=== PATIENT | male | born 1940 | race Caucasian/White ===

== ENCOUNTER 2020-03-21 15:19 | Outpatient (REF) | payer MEDICARE, OTHER, SELFPAY ==
[2020-03-22 07:26] LABS: Estimated Average Glucose 194 mg/dL; Hemoglobin A1c % 8.4 %
== END 2020-03-21 15:20 | disposition home or self-care (01) ==
LOC: HO.MANLR 15:19
PROVIDERS: PCP Internal Medicine; Visit Provider Internal Medicine
DX: E11.65 Type 2 diabetes mellitus with hyperglycemia (principal)
CPT/HCPCS: 83036

== ENCOUNTER 2020-07-09 08:54 | Outpatient (REF) | payer MEDICARE, OTHER, SELFPAY ==
[2020-07-09 11:31] LABS: Hemoglobin 13.7 g/dl (14.0-18.0); Mean Corpuscular HGB Conc 33.4 g/dl (31.0-36.0); Mean Corpuscular Volume 86.7 fL (80-98); Platelet Count 192 X10*3/uL (160-400); Red Blood Count 4.73 X10*6/uL (4.60-5.80); Red Cell Distribution Width 14.7 % (11.0-16.0); White Blood Count 8.8 X10*3/uL (4.8-10.8)
[2020-07-09 11:46] LABS: Estimated Average Glucose 157 mg/dL; Hemoglobin A1c % 7.1 %
[2020-07-09 11:51] LABS: Alanine Aminotransferase 18 U/L (0-40); Albumin Level 4.1 g/dL (3.5-5.0); Alkaline Phosphatase 85 U/L (39-117); Anion Gap 14 (12-20); Aspartate Amino Transferase 16 U/L (5-37); Blood Urea Nitrogen 29 mg/dL (9-16); Calcium 9.2 mg/dL (8.4-10.2); Carbon Dioxide 25 mmol/L (22-29); Chloride 102 mmol/L (96-108); Cholesterol 108 mg/dL; Estimated Glomerular Filt Rate 50; Glucose Fasting 117 mg/dL (60-99); HDL Cholesterol 21 mg/dL; LDL Cholesterol Calculated 57 mg/dl; Potassium 5.7 mmol/L (3.3-5.1); Sodium 135 mmol/L (135-145); Total Protein 6.7 g/dL (6.5-8.0); Triglycerides 152 mg/dL
[2020-07-09 12:11] LABS: Vitamin D 25-OH Total 22.3 ng/mL (>30)
[2020-07-09 13:38] LABS: Creatinine Urine 109.03 mg/dL; Microalbum/Creatinine Ratio Ur 77.9 ug/mg cr
== END 2020-07-09 08:55 | disposition home or self-care (01) ==
LOC: HO.MANLR 08:54
PROVIDERS: PCP Internal Medicine; Visit Provider Internal Medicine
DX: E11.65 Type 2 diabetes mellitus with hyperglycemia (principal); I10 Essential (primary) hypertension; E78.1 Pure hyperglyceridemia
CPT/HCPCS: 36415; 80053; 80061; 82043; 82306; 83036; 85027

== ENCOUNTER 2020-07-28 08:19 | Outpatient (REF) | payer MEDICARE, OTHER, SELFPAY ==
[2020-07-28 12:12] LABS: Anion Gap 13 (12-20); Blood Urea Nitrogen 25 mg/dL (9-16); Calcium 8.3 mg/dL (8.4-10.2); Carbon Dioxide 27 mmol/L (22-29); Chloride 105 mmol/L (96-108); Estimated Glomerular Filt Rate 51; Glucose Fasting 129 mg/dL (60-99); Potassium 4.3 mmol/L (3.3-5.1); Sodium 141 mmol/L (135-145)
== END 2020-07-28 08:20 | disposition home or self-care (01) ==
LOC: HO.MANLDS 08:19
PROVIDERS: PCP Internal Medicine; Visit Provider Internal Medicine
DX: E78.5 Hyperlipidemia, unspecified (principal)
CPT/HCPCS: 36415; 80048

== ENCOUNTER 2020-10-21 09:29 | Outpatient (REF) | payer MEDICARE, OTHER, SELFPAY ==
[2020-10-21 13:10] LABS: Anion Gap 13 (12-20); Blood Urea Nitrogen 34 mg/dL (9-16); Calcium 9.4 mg/dL (8.4-10.2); Carbon Dioxide 28 mmol/L (22-29); Chloride 103 mmol/L (96-108); Estimated Glomerular Filt Rate 49; Glucose Random 213 mg/dL (60-115); Sodium 139 mmol/L (135-145)
== END 2020-10-21 09:30 | disposition home or self-care (01) ==
LOC: HO.MANLDS 09:29
PROVIDERS: Visit Provider Internal Medicine
DX: E87.5 Hyperkalemia (principal); E11.65 Type 2 diabetes mellitus with hyperglycemia
CPT/HCPCS: 36415; 80048

== ENCOUNTER 2021-02-25 10:16 | Outpatient (REF) | payer MEDICARE, OTHER, SELFPAY ==
[2021-02-25 13:18] LABS: Estimated Average Glucose 200 mg/dL; Hemoglobin A1c % 8.6 %
== END 2021-02-25 10:17 | disposition home or self-care (01) ==
LOC: HO.MANLDS 10:16
PROVIDERS: PCP Internal Medicine; Visit Provider Internal Medicine
DX: E11.65 Type 2 diabetes mellitus with hyperglycemia (principal)
CPT/HCPCS: 36415; 83036

== ENCOUNTER 2021-04-27 09:24 | Outpatient (REF) | payer MEDICARE, OTHER, SELFPAY ==
[2021-04-27 11:06] LABS: Estimated Average Glucose 189 mg/dL; Hemoglobin A1c % 8.2 %
== END 2021-04-27 09:25 | disposition home or self-care (01) ==
LOC: HO.MANLDS 09:24
PROVIDERS: PCP Internal Medicine; Visit Provider Internal Medicine
DX: E11.65 Type 2 diabetes mellitus with hyperglycemia (principal)
CPT/HCPCS: 36415; 83036

== ENCOUNTER 2021-06-30 14:06 | Outpatient (REF) | payer MEDICARE, OTHER, SELFPAY ==
[2021-06-30 18:00] LABS: Estimated Average Glucose 157 mg/dL; Hemoglobin A1c % 7.1 %
== END 2021-06-30 14:07 | disposition home or self-care (01) ==
LOC: HO.MANLDS 14:06
PROVIDERS: PCP Internal Medicine; Visit Provider Internal Medicine
DX: E11.65 Type 2 diabetes mellitus with hyperglycemia (principal)
CPT/HCPCS: 36415; 83036

== ENCOUNTER 2021-10-14 09:44 | Outpatient (REF) | payer MEDICARE, OTHER, SELFPAY ==
[2021-10-14 11:31] LABS: Estimated Average Glucose 148 mg/dL; Hemoglobin A1c % 6.8 %
[2021-10-14 11:36] LABS: Creatinine Urine 176.24 mg/dL; Microalbum/Creatinine Ratio Ur 62.9 ug/mg cr
[2021-10-14 11:38] LABS: Alanine Aminotransferase 23 U/L (0-40); Albumin Level 3.8 g/dL (3.5-5.0); Alkaline Phosphatase 82 U/L (39-117); Anion Gap 13 (12-20); Aspartate Amino Transferase 19 U/L (5-37); Blood Urea Nitrogen 37 mg/dL (9-16); Calcium 8.8 mg/dL (8.4-10.2); Carbon Dioxide 27 mmol/L (22-29); Chloride 106 mmol/L (96-108); Cholesterol 101 mg/dL; Estimated Glomerular Filt Rate 49; Glucose Random 87 mg/dL (60-115); HDL Cholesterol 22 mg/dL; LDL Cholesterol Calculated 53 mg/dl; Potassium 4.6 mmol/L (3.3-5.1); Sodium 141 mmol/L (135-145); Total Protein 6.5 g/dL (6.5-8.0); Triglycerides 130 mg/dL
== END 2021-10-14 09:45 | disposition home or self-care (01) ==
LOC: HO.MANLDS 09:44
PROVIDERS: Visit Provider Internal Medicine
DX: E11.65 Type 2 diabetes mellitus with hyperglycemia (principal)
CPT/HCPCS: 36415; 80053; 80061; 82043; 83036

== ENCOUNTER 2022-01-26 15:54 | Outpatient (REF) | payer MEDICARE, OTHER, SELFPAY ==
[2022-01-26 18:25] LABS: Estimated Average Glucose 151 mg/dL; Hemoglobin A1c % 6.9 %
== END 2022-01-26 15:55 | disposition home or self-care (01) ==
LOC: HO.MANLDS 15:54
PROVIDERS: Visit Provider Internal Medicine
DX: E11.65 Type 2 diabetes mellitus with hyperglycemia (principal)
CPT/HCPCS: 36415; 83036

== ENCOUNTER 2022-04-20 15:06 | Outpatient (REF) | payer MEDICARE, OTHER, SELFPAY ==
[2022-04-20 18:52] LABS: Hemoglobin 12.9 g/dl (14.0-18.0); Imm Gran Abs Auto 0.06 X10*3/uL (0.00-0.03); Imm Gran Pct Auto 0.5 % (0.0-0.4); MANUAL DIFF FLAG SCAN; Mean Corpuscular Hemoglobin 29.3 pg (27.0-33.0); Monocytes Absolute Auto 0.7 X10*3/uL (0.1-1.2); PLT CLUMP 1; SCAN SMEAR FLAG 1
[2022-04-20 18:54] LABS: Basophils Absolute Auto 0.1 X10*3/uL (0.0-0.2); Basophils Percent Auto 0.4 % (0-2); Eosinophils Absolute Auto 0.3 X10*3/uL (0.0-0.4); Eosinophils Percent Auto 2.1 % (0-4); Hematocrit 37.5 % (42.0-52.0); Lymphocytes Absolute Auto 1.3 X10*3/uL (1.2-4.9); Lymphocytes Percent Auto 10.7 % (20-40); Mean Corpuscular HGB Conc 34.4 g/dl (31.0-36.0); Mean Corpuscular Volume 85.2 fL (80.0-98.0); Monocytes Percent Auto 5.7 % (2-11); NRBC Pct Auto 0.2 /100WBC (0.0-0.2); Neutrophils Absolute Auto 9.8 x10*3/uL (2.0-8.3); Neutrophils Percent Auto 80.6 % (45-73); Red Cell Distribution Width 15.1 % (11.0-16.0)
[2022-04-20 19:12] LABS: Platelet Count 147 X10*3/uL (160-400); White Blood Count 12.2 X10*3/uL (4.8-10.8)
[2022-04-20 19:13] LABS: SLIDE REVIEW VERIFIED
[2022-04-20 19:19] LABS: Alanine Aminotransferase 20 U/L (0-40); Albumin Level 3.7 g/dL (3.5-5.0); Alkaline Phosphatase 116 U/L (39-117); Anion Gap 13 (12-20); Aspartate Amino Transferase 15 U/L (5-37); Bilirubin Total 1.1 mg/dL (0.0-1.0); Blood Urea Nitrogen 30 mg/dL (9-16); Calcium 8.7 mg/dL (8.4-10.2); Carbon Dioxide 27 mmol/L (22-29); Chloride 102 mmol/L (96-108); Cholesterol 95 mg/dL; Estimated Glomerular Filt Rate 47; Glucose Random 243 mg/dL (60-115); HDL Cholesterol 19 mg/dL; LDL Cholesterol Calculated 27 mg/dl; Potassium 4.3 mmol/L (3.3-5.1); Sodium 138 mmol/L (135-145); Total Protein 6.4 g/dL (6.5-8.0); Triglycerides 247 mg/dL
[2022-04-20 19:20] LABS: Creatinine Urine 47.98 mg/dL; Microalbum/Creatinine Ratio Ur 81.2 ug/mg cr
[2022-04-20 19:20] LABS: Estimated Average Glucose 177 mg/dL; Hemoglobin A1c % 7.8 %
== END 2022-04-20 15:07 | disposition home or self-care (01) ==
LOC: HO.MANLDS 15:06
PROVIDERS: Visit Provider Internal Medicine
DX: E11.65 Type 2 diabetes mellitus with hyperglycemia (principal)
CPT/HCPCS: 36415; 80053; 80061; 82043; 83036; 85025

== ENCOUNTER 2022-08-09 10:49 | Outpatient (REF) | payer MEDICARE, OTHER, SELFPAY ==
[2022-08-09 13:23] LABS: Estimated Average Glucose 186 mg/dL; Hemoglobin A1c % 8.1 %
== END 2022-08-09 10:50 | disposition home or self-care (01) ==
LOC: HO.MANLDS 10:49
PROVIDERS: Visit Provider Internal Medicine
DX: E11.65 Type 2 diabetes mellitus with hyperglycemia (principal)
CPT/HCPCS: 36415; 83036

== ENCOUNTER 2022-12-07 09:51 | Outpatient (REF) | payer MEDICARE, OTHER, SELFPAY ==
[2022-12-07 13:51] LABS: Estimated Average Glucose 131 mg/dL; Hemoglobin A1c % 6.2 %
== END 2022-12-07 09:52 | disposition home or self-care (01) ==
LOC: HO.MANLDS 09:51
PROVIDERS: Visit Provider Internal Medicine
DX: E11.65 Type 2 diabetes mellitus with hyperglycemia (principal)
CPT/HCPCS: 36415; 83036

== ENCOUNTER 2023-03-07 13:22 | Outpatient (REF) | payer MEDICARE, OTHER, SELFPAY ==
[2023-03-07 18:03] LABS: Estimated Average Glucose 137 mg/dL; Hemoglobin A1c % 6.4 % (<6.0)
== END 2023-03-07 13:23 | disposition home or self-care (01) ==
LOC: HO.MANLDS 13:22
PROVIDERS: Visit Provider Internal Medicine
DX: E11.65 Type 2 diabetes mellitus with hyperglycemia (principal)
CPT/HCPCS: 36415; 83036

== ENCOUNTER 2023-06-01 10:28 | Outpatient (REF) | payer MEDICARE, OTHER, SELFPAY ==
[2023-06-01 12:59] LABS: Estimated Average Glucose 163 mg/dL; Hemoglobin A1c % 7.3 % (<6.0)
== END 2023-06-01 10:29 | disposition home or self-care (01) ==
LOC: HO.MANLDS 10:28
PROVIDERS: Visit Provider Internal Medicine
DX: E11.65 Type 2 diabetes mellitus with hyperglycemia (principal)
CPT/HCPCS: 36415; 83036

== ENCOUNTER 2023-09-05 11:53 | Outpatient (REF) | payer MEDICARE, OTHER, SELFPAY ==
[2023-09-05 13:11] LABS: MANUAL DIFF FLAG NO
[2023-09-05 13:28] LABS: Basophils Absolute Auto 0.1 X10*3/uL (0.0-0.2); Basophils Percent Auto 0.6 % (0-2); Eosinophils Absolute Auto 0.1 X10*3/uL (0.0-0.4); Eosinophils Percent Auto 1.6 % (0-4); Hematocrit 41.6 % (42.0-52.0); Hemoglobin 14.2 g/dl (14.0-18.0); Imm Gran Abs Auto 0.08 X10*3/uL (0.00-0.03); Imm Gran Pct Auto 0.9 % (0.0-0.4); Lymphocytes Absolute Auto 1.6 X10*3/uL (1.2-4.9); Lymphocytes Percent Auto 17.8 % (20-40); Mean Corpuscular HGB Conc 34.1 g/dl (31.0-36.0); Mean Corpuscular Hemoglobin 29.9 pg (27.0-33.0); Mean Corpuscular Volume 87.6 fL (80.0-98.0); Monocytes Absolute Auto 0.6 X10*3/uL (0.1-1.2); Monocytes Percent Auto 6.4 % (2-11); Neutrophils Absolute Auto 6.4 x10*3/uL (2.0-8.3); Neutrophils Percent Auto 72.7 % (45-73); Platelet Count 167 X10*3/uL (160-400); Red Blood Count 4.75 X10*6/uL (4.60-5.80); Red Cell Distribution Width 14.6 % (11.0-16.0); White Blood Count 8.7 X10*3/uL (4.8-10.8)
[2023-09-05 13:44] LABS: Estimated Average Glucose 160 mg/dL; Hemoglobin A1c % 7.2 % (<6.0)
[2023-09-05 14:08] LABS: Alanine Aminotransferase 24 U/L (0-40); Alkaline Phosphatase 90 U/L (39-117); Anion Gap 11 (12-20); Aspartate Amino Transferase 17 U/L (5-37); Bilirubin Total 1.2 mg/dL (0.0-1.0); Blood Urea Nitrogen 38 mg/dL (9-16); Calcium 9.3 mg/dL (8.4-10.2); Carbon Dioxide 30 mmol/L (22-29); Chloride 105 mmol/L (96-108); Estimated Glomerular Filt Rate 51; Glucose Random 121 mg/dL (60-115); Potassium 4.5 mmol/L (3.3-5.1); Sodium 141 mmol/L (135-145); Total Protein 7.2 g/dL (6.5-8.0)
== END 2023-09-05 11:54 | disposition home or self-care (01) ==
LOC: HO.MANLDS 11:53
PROVIDERS: Visit Provider Internal Medicine
DX: I10 Essential (primary) hypertension (principal)
CPT/HCPCS: 36415; 80053; 83036; 85025

== ENCOUNTER 2023-12-26 09:08 | Outpatient (REF) | payer MEDICARE, OTHER, SELFPAY ==
[2023-12-26 13:14] LABS: MANUAL DIFF FLAG NO
[2023-12-26 13:25] LABS: Basophils Absolute Auto 0.1 X10*3/uL (0.0-0.2); Basophils Percent Auto 0.6 % (0-2); Eosinophils Absolute Auto 0.2 X10*3/uL (0.0-0.4); Eosinophils Percent Auto 1.9 % (0-4); Hematocrit 42.6 % (42.0-52.0); Hemoglobin 14.5 g/dl (14.0-18.0); Imm Gran Abs Auto 0.07 X10*3/uL (0.00-0.03); Imm Gran Pct Auto 0.9 % (0.0-0.4); Lymphocytes Absolute Auto 1.5 X10*3/uL (1.2-4.9); Lymphocytes Percent Auto 19.8 % (20-40); Mean Corpuscular Hemoglobin 29.4 pg (27.0-33.0); Mean Corpuscular Volume 86.2 fL (80.0-98.0); Monocytes Absolute Auto 0.4 X10*3/uL (0.1-1.2); Monocytes Percent Auto 5.4 % (2-11); Neutrophils Absolute Auto 5.6 x10*3/uL (2.0-8.3); Neutrophils Percent Auto 71.4 % (45-73); Platelet Count 164 X10*3/uL (160-400); Red Blood Count 4.94 X10*6/uL (4.60-5.80); Red Cell Distribution Width 14.4 % (11.0-16.0); White Blood Count 7.8 X10*3/uL (4.8-10.8)
[2023-12-26 13:44] LABS: Estimated Average Glucose 151 mg/dL; Hemoglobin A1c % 6.9 % (<6.0)
[2023-12-26 13:49] LABS: Alanine Aminotransferase 21 U/L (0-40); Albumin Level 3.8 g/dL (3.5-5.0); Alkaline Phosphatase 92 U/L (39-117); Anion Gap 12 (12-20); Aspartate Amino Transferase 17 U/L (5-37); Blood Urea Nitrogen 24 mg/dL (9-16); Calcium 9.4 mg/dL (8.4-10.2); Carbon Dioxide 27 mmol/L (22-29); Chloride 105 mmol/L (96-108); Cholesterol 104 mg/dL (<200); Estimated Glomerular Filt Rate 49; Glucose Random 178 mg/dL (60-115); HDL Cholesterol 25 mg/dL (>40); LDL Cholesterol Calculated 50 mg/dL (<100); Potassium 4.6 mmol/L (3.3-5.1); Sodium 139 mmol/L (135-145); Triglycerides 148 mg/dL (<150)
== END 2023-12-26 09:09 | disposition home or self-care (01) ==
LOC: HO.MANLDS 09:08
PROVIDERS: Visit Provider Internal Medicine
DX: E78.1 Pure hyperglyceridemia (principal); E11.65 Type 2 diabetes mellitus with hyperglycemia; I10 Essential (primary) hypertension
CPT/HCPCS: 36415; 80053; 80061; 83036; 85025

== ENCOUNTER 2024-03-23 09:20 | Outpatient (REF) | payer MEDICARE, OTHER, SELFPAY ==
[2024-03-23 13:50] LABS: Estimated Average Glucose 160 mg/dL; Hemoglobin A1C 287.4294 umol/L; Hemoglobin A1c % 7.2 % (<6.0); Total Hemoglobin (HGBA1C) 5217.5429 umol/L
== END 2024-03-23 09:21 | disposition home or self-care (01) ==
LOC: HO.MANLDS 09:20
PROVIDERS: Visit Provider Internal Medicine
DX: E11.65 Type 2 diabetes mellitus with hyperglycemia (principal)
CPT/HCPCS: 36415; 83036

== ENCOUNTER 2024-09-14 10:07 | Outpatient (REF) | payer MEDICARE, OTHER, SELFPAY ==
--- OUTSIDE RECORDS SUMMARY | 2024-09-14 10:37 | XMS_ITS | Data Portability ---
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) [facility] MODERATE MUST MEET 2 OUT OF 3 ELEMENTS: PROBLEMS, DATA OR RISK ELEMENT 1: PROBLEMS ADDRESSED 1 OR MORE CHRONIC ILLNESS WITH EXACERBATION OR 2 OR MORE STABLE CHRONIC ILLNESSES OR 1 UNDIAGNOSED NEW PROBLEM OR 1 ACUTE ILLNESS W/SYMPTOMS OR 1 ACUTE COMPLICATED INJURY ELEMENT 2: DATA MUST MEET 1 OF 3 CATEGORIES CATEGORY 1: REVIEW OF PRIOR EXTERNAL NOTES, REVIEW OF RESULTS, ORDERING OF EACH TEST, ASSESSMENT REQUIRING INDEPENDENT HISTORIAN OR CATEGORY 2: INDEPENDENT INTERPRETATION OF TESTS BY ANOTHER PHYSICIAN OR SPECIALIST OR CATEGORY 3: DISCUSSION OF MGT OR TEST INTERPRETATION W/EXTERNAL PHYSICIAN OR SPECIALIST ELEMENT 3: RISK RISK OF COMPLICATIONS AND/OR MORBIDITY OR MORTALITY OF PATIENT MANAGEMENT PROVIDER MUST THOROUGHLY DOCUMENT EACH ELEMENT THAT IS COVERED Not available 06/06/2023 10:23:16 09/09/2023 09/09/2023 [id number] [place] [id number]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) [facility] MODERATE MUST MEET 2 OUT OF 3 ELEMENTS: PROBLEMS, DATA OR RISK ELEMENT 1: PROBLEMS ADDRESSED 1 OR MORE CHRONIC ILLNESS WITH EXACERBATION OR 2 OR MORE STABLE CHRONIC ILLNESSES OR 1 UNDIAGNOSED NEW PROBLEM OR 1 ACUTE ILLNESS W/SYMPTOMS OR 1 ACUTE COMPLICATED INJURY ELEMENT 2: DATA MUST MEET 1 OF 3 CATEGORIES CATEGORY 1: REVIEW OF PRIOR EXTERNAL NOTES, REVIEW OF RESULTS, ORDERING OF EACH TEST, ASSESSMENT REQUIRING INDEPENDENT HISTORIAN OR CATEGORY 2: INDEPENDENT INTERPRETATION OF TESTS BY ANOTHER PHYSICIAN OR SPECIALIST OR CATEGORY 3: DISCUSSION OF MGT OR TEST INTERPRETATION W/EXTERNAL PHYSICIAN OR SPECIALIST ELEMENT 3: RISK RISK OF COMPLICATIONS AND/OR MORBIDITY OR MORTALITY OF PATIENT MANAGEMENT PROVIDER MUST THOROUGHLY DOCUMENT EACH ELEMENT THAT IS COVERED Not available 09/09/2023 15:18:56 12/27/2023 12/27/2023 Patient presente d to office today for their Medicare Annual Wellness Visit. Education was provided on healthy nutrition, including a diet rich in fruits and vegetables, minimizing simple carbohydrates, salt, and saturated fats. Encouraged regular cardiovascular exercise such as walking at least 30 minutes daily, 5 times per week. Emphasized preventive health measures and educated pt on fall prevention and community-based lifestyle interventions to help reduce health risks and promote healthy living. 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) [facility] MODERATE MUST MEET 2 OUT OF 3 ELEMENTS: PROBLEMS, DATA OR RISK ELEMENT 1: PROBLEMS ADDRESSED 1 OR MORE CHRONIC ILLNESS WITH EXACERBATION OR 2 OR MORE STABLE CHRONIC ILLNESSES OR 1 UNDIAGNOSED NEW PROBLEM OR 1 ACUTE ILLNESS W/SYMPTOMS OR 1 ACUTE COMPLICATED INJURY ELEMENT 2: DATA MUST MEET 1 OF 3 CATEGORIES CATEGORY 1: REVIEW OF PRIOR EXTERNAL NOTES, REVIEW OF RESULTS, ORDERING OF EACH TEST, ASSESSMENT REQUIRING INDEPENDENT HISTORIAN OR CATEGORY 2: INDEPENDENT INTERPRETATION OF TESTS BY ANOTHER PHYSICIAN OR SPECIALIST OR CATEGORY 3: DISCUSSION OF MGT OR TEST INTERPRETATION W/EXTERNAL PHYSICIAN OR SPECIALIST ELEMENT 3: RISK RISK OF COMPLICATIONS AND/OR MORBIDITY OR MORTALITY OF PATIENT MANAGEMENT PROVIDER MUST THOROUGHLY DOCUMENT EACH ELEMENT THAT IS COVERED Not available 03/26/2024 14:33:33 06/13/2024 06/13/2024 [id number] [place] [id number]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) [facility] MODERATE MUST MEET 2 OUT OF 3 ELEMENTS: PROBLEMS, DATA OR RISK ELEMENT 1: PROBLEMS ADDRESSED 1 OR MORE CHRONIC ILLNESS WITH EXACERBATION OR 2 OR MORE STABLE CHRONIC ILLNESSES OR 1 UNDIAGNOSED NEW PROBLEM OR 1 ACUTE ILLNESS W/SYMPTOMS OR 1 ACUTE COMPLICATED INJURY ELEMENT 2: DATA MUST MEET 1 OF 3 CATEGORIES CATEGORY 1: REVIEW OF PRIOR EXTERNAL NOTES, REVIEW OF RESULTS, ORDERING OF EACH TEST, ASSESSMENT REQUIRING INDEPENDENT HISTORIAN OR CATEGORY 2: INDEPENDENT INTERPRETATION OF TESTS BY ANOTHER PHYSICIAN OR SPECIALIST OR CATEGORY 3: DISCUSSION OF MGT OR TEST INTERPRETATION W/EXTERNAL PHYSICIAN OR SPECIALIST ELEMENT 3: RISK RISK OF COMPLICATIONS AND/OR MORBIDITY OR MORTALITY OF PATIENT MANAGEMENT PROVIDER MUST THOROUGHLY DOCUMENT EACH ELEMENT THAT IS COVERED Not available 06/13/2024 14:27:21 Plan of Treatment Reminders Order Date Submit Date Provider Last Modified By Organization Details Last Modified Time Details Appointments FOLLOW UP 15 2024 02:00P M DR ARGUELLO Not available Not available Not available Lab lipid panel, serum 2023 024 [facility], [address] [place] [address], [id number], 12/27/2023 11:17:34 CMP, serum or plasma 2023 024 [facility], [address] [place] [address], [id number], 12/27/2023 11:17:34 HbA1c (hemoglo bin A1c), blood 2023 024 [facility], [address] [place] [address], [id number], 12/27/2023 11:17:34 lipid panel, serum 2023 024 [facility], [address] [place] [address], [id number], 06/06/2023 10:31:15 CBC w/ auto diff 2023 024 [facility], [address] [place] [address], [id number], 09/06/2023 11:22:14 CBC w/ auto diff 2023 024 [facility], [address] [place] [address], [id number], 12/27/2023 11:17:35 CBC w/ auto diff 2023 024 [facility], [address] [place] [address], [id number], 12/27/2023 14:33:35 HbA1c (hemoglo bin A1c), blood 2023 024 [facility], [address] [place] [address], [id number], 06/06/2023 10:31:14 CMP, serum or plasma 2023 024 [facility], [address] [place] [address], [place], [id number], 06/06/2023 10:31:14 Referral None recorded . Procedures None recorded . Surgeries None recorded . Imaging None recorded . Medication Orders None recorded . Patient TargetsNo targets recorded. Patient Instructions Encounter Date Encounter Id Patient Instructions Last Modified By Organization Details Last Modified Time 12/27/2023 [id number] advance care planning: care instructions Not available 12/27/2023 14:44:54 Discussed and explained advance directives such as standard forms to the {{patient* caregi michael patient and caregiver}}. Face to face discussion lasted for a duration of __5_ minutes. Not available 12/27/2023 14:44:28 06/13/2024 [id number] sleep apnea: car e instructions Not available 06/13/2024 14:32:34 Reason for Referral None Reported. Results Created Date Observation Date Name Description Value Unit Range Abnormal Flag Note LastModifiedBy Organization Detail LastModifiedTime Result Notes None recorded. 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 5334179 Active 2021 Raymond Arguello DO [address] [place] [address], [phone], [facility] 2 15:39:22 Neuropath y due to diabetes mellitus 027248808 Active 2022 Raymond Arguello DO [address] [place] [address], [phone], [facility] 3 11:06:27 COVID-19 271249109 Active 2023 DARRELL OLIVARES [address] [place] [address], [phone], [facility] 4 13:53:59 Type 2 diabetes mellitus 88559013 Active 2017 Not Available [facility] 14:19:32 Hypertrig lyceridem ia 099051809 Active 2017 Not Available [facility] 14:19:32 Obstructi ve sleep apnea syndrome 44121063 Active 2017 Not Available [facility] 14:19:32 Low back pain 482841312 Active 2017 strain Not Available [facility] 14:19:32 Essential hypertens ion 67467757 Active 2017 Not Available [facility] 14:19:32 Prostatit is 9482298 Active 2017 Not Available [facility] 14:19:32 Recurrent hematuria 351480091 Active 2017 Not Available [facility] 14:19:32 Obesity 019093344 Active 2017 Not Available [facility] 14:19:32 Problem Notes None recorded. Medical Equipment None Reported. Allergies No known drug allergies Medications Name Sig Start Date Stop Date Status Note LastModified by Organization Details LastModified Time Prescript ion - Prior Authoriza tion Request 11/13 completed Cyclobebryce zaprine Not Available Not Available Not Available furosemid e 40 mg tablet TAKE 1 TABLET BY MOUTH EVERY DAY NEEDED 2023 active Not Available Not Available Not Avai lable atorvasta tin 40 mg tablet TAKE 1 TABLET BY MOUTH EVERY DAY 2024 active Not Available Not Available Not Avai lable glipizide ER 10 mg tablet, extended release 24 hr TAKE 1 TABLET BY MOUTH ONCE DAILY 07/26 completed Not Available Not Available Not Available Lantus U-100 Insulin 100 unit/mL subcutane ous solution 06/12 completed Not Available Not Available Not Available spironola ctone 25 mg tablet TAKE 1 TABLET BY MOUTH EVERY DAY 07/16 completed Not Available Not Available Not Available ketorolac 0.5 % eye drops INSTILL 1 DROP IN THE LEFT EYE THREE TIMES A DAY FOR 3 WEEKS FOLLOWIN G SURGERY 02/03 completed Not Available Not Available Not Available metformin 1,000 mg tablet TAKE 1 TABLET BY MOUTH EVERY DAY 02/03 completed Not Available Not Available Not Available lisinopri l 40 mg tablet TAKE 1 TABLET BY MOUTH EVERY DAY 2024 active Not Available Not Available Not Avai lable finasteri de 5 mg tablet TAKE 1 TABLET BY MOUTH DAILY active Not Available Not Available No t Available cyclobenz aprine 5 mg tablet TAKE 1 TABLET BY MOUTH THREE TIMES DAILY FOR 15 DAYS 11/13 completed Not Available Not Available Not Available BD Ultra-Fin e Mini Pen Needle 31 gauge x 3/16 USE EVERY DAY 2021 active Not Available Not Available Not Avai lable Boostrix Tdap 2.5 Lf unit-8 mcg-5 Lf/0.5 mL intramusc ular syringe 06/12 completed Not Available Not Available Not Available Aspir-81 Take one daily. active Not Available Not Available No t Available BD Ultra-Fin e Short Pen Needle 31 gauge x 5/16 USE TO INJECT INSULIN EVERY DAY 2024 active Not Available Not Available Not Avai lable Januvia 100 mg tablet TAKE 1 TABLET BY MOUTH EVERY DAY active Not Available Not Available No t Available FreeStyle Lite Strips test once a day E11.65 2019 active Not Available Not Available Not Avai lable Levemir FlexTouch U-100 Insulin 100 unit/mL (3 mL) subcutane ous pen Use 40 units every day. 03/28 completed Not Available Not Available Not Available Trulicity 1.5 mg/0.5 mL subcutane ous pen injector ADMINIST ER 1.5 MG UNDER THE SKIN EVERY WEEK DIRECTED 12/10 completed Not Available Not Available Not Available Toujeo SoloStar U-300 Insulin 300 unit/mL (1.5 mL) subcutane ous pen 11/28 completed Not Available Not Available Not Available Basaglar KwikPen U-100 Insulin 100 unit/mL (3 mL) subcutane ous ADMINIST ER 50 UNITS UNDER THE SKIN EVERY DAY 2024 active Not Available Not Available Not Avai lable Toujeo Max U-300 SoloStar 300 unit/mL (3 mL) subcutane ous insulin pen 03/28 completed Not Available Not Available Not Available magnesium 400 mg (as magnesium oxide) tablet Take 1 tablet every other day by oral route. active Not Available Not Available No t Available BD Adelina 2nd Gen Pen Needle 32 gauge x USE EVERY DAY active Not Available Not Available No t Available Fluzone High-Dose Quad (PF) 240 mcg/0.7 mL IM syringe ADM 0.7ML IM UTD 03/04 completed Not Available Not Available Not Available Trulicity 3 mg/0.5 mL subcutane ous pen injector ADMINIST ER 3 MG UNDER THE SKIN EVERY WEEK 12/12 completed Not Available Not Available Not Available BinaxNOW COVID-19 Ag Self Test kit TEST DIRECTED TODAY 04/26 completed Not Available Not Available Not Available Paxlovid 300 mg (150 mg x 2)-100 mg tablets in a dose pack Take 1 tablet twice a day by oral route for 5 days. 06/06 completed Not Available Not Available Not Available Paxlovid 150 mg-100 mg tablets in a dose pack (Moderate Renal Dose) TK 1 NIRMATRE LVIR T AND 1 RITONAVI R T TOGETHER PO BID FOR 5 DAYS 06/06 completed Not Available Not Available Not Available Mounjaro 2.5 mg/0.5 mL subcutane ous pen injector ADMINIST ER 2.5 MG UNDER THE SKIN 1 TIME A WEEK 2024 active Not Available Not Available Not Avai lable Vitals Date Recorded Body height Body mass index (BMI) Body weight Heart rate Oxygen saturation Oxygen saturation in Arterial blood by Pulse oximetry Systolic blood pressure Diastolic blood pressure Provider Name and Address Organization Details Last Updated DateTime 4 179.07 cm 35.6 kg/m2 866762. 28 g 66 /min 99 % 99 % 140 mm[Hg] 72 mm[Hg] Vilma Blanco [facility] 4 15:09:37 Date Recorded Body height Body mass index (BMI) Body weight Heart rate Oxygen saturation Oxygen saturation in Arterial blood by Pulse oximetry Systolic blood pressure Diastolic blood pressure Provider Name and Address Organization Details Last Updated DateTime 4 179.07 cm 35.9 kg/m2 396006. 46 g 72 /min 98 % 98 % 118 mm[Hg] 78 mm[Hg] Kan Covarrubias [facility] 4 14:29:36 Date Recorded Body height Body mass index (BMI) Body weight Heart rate Oxygen saturation Oxygen saturation in Arterial blood by Pulse oximetry Systolic blood pressure Diastolic blood pressure Provider Name and Address Organization Details Last Updated DateTime 4 179.07 cm 35.4 kg/m2 676390. 09 g 71 /min 98 % 98 % 132 mm[Hg] 80 mm[Hg] Vilma Farfan [facility] 4 14:15:48 Date Recorded Body height Body mass index (BMI) Body weight Heart rate Oxygen saturation Oxygen saturation in Arterial blood by Pulse oximetry Systolic blood pressure Diastolic blood pressure Provider Name and Address Organization Details Last Updated DateTime 5 179.07 cm 36.5 kg/m2 698152. 83 g 78 /min 100 % 100 % 118 mm[Hg] 70 mm[Hg] Kan Covarrubias [facility] 5 14:04:00 Social History Question Answer Notes LastModified by Organizat ion Details LastModified Time Tobacco Smoking Status [facility] 12:21:42 What Was The Date Of Your Most Recent Tobacco Screening? 06/13/2024 [email or web address] Information not available 06/13/2024 Do You Or Have You Ever Used Any Other Forms Of Tobacco Or Nicotine? No Information not available 08/11/2022 Sex: Unknown Functional Status None recorded. Mental Status None recorded. Family History Nothing Reported. Medical History No medical history recorded. Immunizations Vaccine Type Date Status Note Provider Nam e and Address Organization Details Recorded Time COVID-19, mRNA, LNP-S, PF, 30 mcg/0.3 mL dose 02/18/20 21 completed DARRELL OLIVARES [address] [place] [address], [phone], [facility] 02/18/2021 14:26:39 Influenza, split virus, quadrivalent, preservative 02/18/20 21 completed Raymond Arguello DO [address] [place] [address], [phone], [place] [facility] 03/04/2021 09:20:10 Influenza, split virus, quadrivalent, preservative 02/17/20 18 completed Raymond Arguello DO [address] [place] [address], [phone], [facility] 02/17/2018 08:32:39 Tdap 02/17/20 18 completed Raymond Arguello DO [address] [place] [address], [phone], [facility] 02/17/2018 08:32:51 Pneumococcal conjugate PCV 13 02/01/20 15 [facility] 03/13/2018 11:33:20 Influenza, split virus, quadrivalent, preservative 02/20/20 19 [facility] 02/20/2019 08:03:47 Influenza, split virus, quadrivalent, preservative 04/05/20 20 [facility] 04/07/2020 08:09:39 COVID-19, mRNA, LNP-S, PF, 30 mcg/0.3 mL dose 06/13/19 21 completed Shima luevano [facility] 07/16/2020 10:35:28 COVID-19, mRNA, LNP-S, PF, 30 mcg/0.3 mL dose 07/04/19 21 fany luevano [facility] 07/16/2020 09:13:42 pneumococcal polysaccharide PPV23 02/15/20 16 [facility]/2020 10:35:44 Past Encounters Encounter ID Performer Location Encounter Start Date Encounter Closed Date Diagnosis/Indication Diagnosis SNOMED-CT Code Diagnosis ICD10 Code Diagnosis Note [id number] Raymond Arguello [facility] [address],[place] [address] 09/23/2017 11:58:47 09/23/2017 16:36:41 Type 2 diabetes mellitus 25197799 E11.65 increase to 40units levemir Essential hypertension 04011884 I10 doing well weight is down 10 lb [id number] Raymond Arguello [facility] [address] [address] 11/28/2017 11:06:59 11/28/2017 11:59:06 Type 2 diabetes mellitus 80610589 E11.65 will provide with toujeo pen samples and will rechk in 3 mo Essential hypertension 45080193 I10 doing well weight is stable [id number] Raymond Arguello [facility] [address],[place] [address] 03/13/2018 11:04:08 03/13/2018 12:18:52 Adult health examination 682459338 Z00.00 will need lab Screening for cardiovascular system disease 874991815 Z13.6 given multiple illnesses willneed to keep checking Screening for malignant neoplasm of colon 838758781 Z12.11 not due Type 2 arias betes mellitus 39504230 E11.65 levemor ios not working poor response will provide with toujeo pen samples and will rechk in 3 mo and will try use toujeo exclusivel y now as this clearly worked well Essential hypertension 08628403 I10 doing well weight is stable [id number] Raymond Arguello [facility] [address],[place] [address] 06/12/2018 10:24:17 06/12/2018 14:09:51 Type 2 diabetes mellitus 24337778 E11.65 basaglar working well a1c is dowwn to 8.0 will continue current doses as his glucose cont to drop Essential hypertension 08496003 I10 doing well weight is stable Pre-surger y evaluation 835533013 Z01.818 according to the latest risk evaluation format this patient is at low risk for cataract surgery and is cleared accordingl y. pt understand s to take 1/2 dose of his Basaglar on night before surgery. Raymond Arguello [facility] [address],[place] [address] 09/20/2018 09:37:55 09/20/2018 10:58:49 Type 2 diabetes mellitus 67148387 E11.65 basaglar working well a1c is dowwn to 8.1 will continue current doses as his glucose cont to drop Essential hypertension 08266439 I10 doing well weight is stable Hypertriglyceridemia 302 848343 E78.1 will get next lab [id number] Raymond Arguello DO [facility] [address] [address] 01/17/2019 13:40:07 01/17/2019 14:55:52 Type 2 diabetes mellitus 29643335 E11.65 [facility] a1c is staying at 8.2 will continue current doses as his glucose cont to drop Essential hypertension 78946028 I10 doing well weight is stable [id number] Raymond Arguello DO [facility] [address] [address] 04/25/2019 10:05:00 04/25/2019 10:55:27 Type 2 diabetes mellitus 68104902 E11.65 [facility] will add januvia and stop the glipizide due to the wgt gain since on it a1c is up to at 8.9 as this shows he is not compliant will continue basaglar but at 50 units Essential hypertension 61614197 I10 doing well weight is stable [id number] Raymond Arguello DO [facility] [address] [address] 07/27/2019 09:36:45 07/27/2019 10:21:30 Obesity 727546130 E66.9 still gaining not following diet Type 2 arias betes mellitus 55052575 E11.65 [facility] have added januvia and stop the glipizide due to the wgt gain since on it a1c was up to at 8.9 last apr and is now 7.5 and this is excellent will continue basaglar at 50 units januvia working [facility] Essential hypertension 26380485 I10 doing well weight is stable 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 4453813620 9102 E11.29 will need to keep an eye on this rechk in 6 mo [id number] Raymond Arguello DO [facility] [address] [address] 10/19/2019 11:57:50 10/19/2019 13:46:12 Strain of calf muscle 877448405 S86.111A will try muscle relaxer and switching from voltaren gel to ibuprofen/ aleve for pain and inflammati on will continue to ice and heat area will continue to elevate the leg [id number] Raymond Arguello DO [facility] [address] [address] 11/14/2019 09:22:31 11/14/2019 09:58:06 Microalbuminuria due to type 2 diabetes mellitus 8064276495 9102 E11.29 will need to keep an eye on this rechk in 6 mo Type 2 arias betes mellitus 03111635 E11.65 basaglar working so far he is more active and his a1c is stable at 7.7 have added januvia and stop the glipizide due to the wgt gain since on it a1c was up to at 8.9 last dec and is now 7.7 and this is excellent will continue basaglar at 50 units januvia working great Essential hypertension 50355157 I10 doing well weight is stable Obesity 909852661 E66.9 still gaining not following diet but at l;east he is active [id number] Raymond Arguello DO [facility] [address],[place] [address] 03/26/2020 09:47:51 03/26/2020 11:32:40 Type 2 diabetes mellitus 95931495 E11.65 basaglar working so far he is more active and his a1c is stable at 7.7 have added januvia and stop the glipizide due to the wgt gain since on it a1c is backup to 8.4 was 7.7 and 8.9 last decwill continue basaglar at 50 units januvia working great Essential hypertension 71221080 I10 doing well weight is stable Hypertriglyceridemia 302 314015 E78.1 will get next lab 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 6007517759 9102 E11.29 will need to keep an eye on this rechk in 6 mo [id number] Raymond Arguello DO [facility] [address] [address] 07/16/2020 09:10:17 07/16/2020 10:25:18 Type 2 diabetes mellitus 61379397 E11.65 basaglar working so far he is more active and his a1c is stable at 7.7 jesusuvia is working and doing gooed a1c is down to 7 was backup to 8.4 was 7.7 and 8.9 last decwill continue basaglar at 50 units we will cont the metform but only once daily due to kidneys januvia working great Essential hypertension 96224218 I10 doing well weight is stable Hyperkalemia 38149047 E8 7.5 stop bid metformin we will stop spironolac tone eye on lisinopril but will add furosemide for when legs swell rechk in week Edema of l ower extremity 864375602 R60.0 [id number] Raymond Arguello [facility] [address],[place] [address] 10/29/2020 08:54:22 10/29/2020 09:27:27 Type 2 diabetes mellitus 24873474 E11.65 basaglar working so far he is more active and his a1c is stable at 7.7 andrew is working and doing good a1c is down to 7 was back up to 8.4 was 7.7 and 8.9 last dec will continue basaglar at 50 units we will cont the metform but only once daily due to kidneys januvia working great Hypertriglyceridemia 302 794201 E78.1 will get next lab Essential hypertension 79092893 I10 doing well weight is stable [id number] Raymond Arguello [facility] [address],[place] [address] 03/04/2021 09:13:23 03/04/2021 12:34:19 Essential hypertension 63721739 I10 doing well weight is stable Type 2 arias betes mellitus 76281771 E11.65 a1c is elevated at 8.6 and this despite eating better and noted leg swelling gone and increased insulin dose we will add trulicity .75 and then have him increase to 1.5 and then see him with an a1cwe will cont the metform but only once daily due to kidneys Hypertriglyceridemia 302 108608 E78.1 will get next lab [id number] Raymond Arguello [facility] Internal Medicine [address] [facility] [place] [address] 05/04/2021 07:11:21 05/04/2021 11:30:31 Type 2 diabetes mellitus [id number] E11.65 a1c is elevated at 8.2 but better than 8.6 and this despite eating better and noted leg swelling gone and increased insulin dosecont trulicity at 1.5 and then see him with an a1c in 2 monthswe will cont the metform but only once daily due to kidneyssam ples of trulicity 1.5 given Essential hypertension [id number] I10 doing well weight is stable [id number] Raymond Arguello, [facility] Internal Medicine [address], [address] [place] [facility] [place] [address] 07/07/2021 15:22:22 07/08/2021 08:35:20 Type 2 diabetes mellitus [id number] E11.65 a1c is elevated at 8.2 but better than 8.6 and this despite eating better and noted leg swelling gone and increased insulin dose and he is doing great with the trulicityc ont trulicity at 1.5 and then see him with an a1c in 2 monthswe will cont the metform but only once daily due to kidneyssam ples of trulicity 1.5 given Essential hypertension 14235126 I10 doing well weight is stable Obstructiv e sleep apnea syndrome [id number] G47.33 hardeep e no issue [id number] Raymond Arguello, [facility] Internal Medicine [address], [place] [address] 08/12/2021 14:23:33 08/14/2021 09:55:24 Pre-surgery evaluation [id number] Z01.818 according to the latest risk evaluation format this patient is at low risk for cataract surgery and is cleared accordingl y. pt understand s to take 1/2 dose of his Basaglar on night before surgery. Active or passive immunization 348149179 Z23 advised of shingles vaccine will consider Type 2 arias betes mellitus 90557211 E11.65 a1c is 7.1 and is betterhe is eating better and noted leg swelling gonehe had increased insulin dose and he is doing great with the trulicityc ont trulicity at 1.5 and then see him with an a1c in 2 monthswe will cont the metform but only once daily due to kidneys and will follow [id number] Raymond Arguello [facility] Internal Medicine [address],[place] [address] 10/21/2021 08:00:05 10/21/2021 15:36:40 Type 2 diabetes mellitus 23925146 E11.65 a1c is 6.8 was 7.1 and is betterhe is eating better and noted leg swelling gonehe had increased insulin dose and he is doing great with the trulicityc ont trulicity at 1.5 and then see him with an a1c in 2 monthsthe metform but only once daily due to kidneys and will follow kidneys are stable thus far but we will stop the meformin Essential hypertension 19616600 I10 doing well weight is stable [id number] Raymond Arguello [facility] Internal Medicine [address],[place] [facility] [address] 02/03/2022 14:05:54 02/03/2022 15:59:10 Type 2 diabetes mellitus 79136683 E11.65 a1c is 6.9 and prior 6.8 was 7.1 and is betterhe is eating better and noted leg swelling gonehe had increased insulin dose and he is doing great with the trulicityc ont trulicity at 1.5 and then see him with an a1c in 2 monthsthe metform but only once daily due to kidneys and will follow kidneys are stable thus far but we will stop the meformin Essential hypertension 21463952 I10 doing well weight is stable Obesity 983301059 E66.9 still gaining not following diet but at l;east he is active [id number] Raymond Arguello [facility] Internal Medicine [address],[place] [address] 04/26/2022 14:41:09 04/26/2022 16:27:36 Type 2 diabetes mellitus 10780786 E11.65 a1c is 7.8 and prior was 6.9 we blame this on the covidleg swelling gonehe had increased insulin dose doing great with the trulicityc ont trulicity at 1.5 and then see him with an a1c in 2 monthsthe metform but only once daily due to kidneys and will follow kidneys are stable thus far but we will stop the meformin at some point Hypertriglyceridemia 302 155574 E78.1 will get next lab Essential hypertension 67846489 I10 doing well weight is stable 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 [id number] 9102 E11.29 will need to keep an eye on this rechk in 6 mo [id number] Raymond Arguello [facility] Internal Medicine [address],[place] [address] 08/11/2022 10:04:51 08/11/2022 11:16:38 Type 2 diabetes mellitus 82194775 E11.65 a1c is now up to 9 and was 8 and prior 7.8 and prior was 6.9 we blame this on the covidleg swelling dane had increased insulin dose doing great with the trulicityc ont trulicity at 1.5 and then see him with an a1c in 2 monthsthe metform but only once daily due to kidneys and will follow kidneys are stable thus far but we will stop the meformin at some point Essential hypertension 83218699 I10 doing well weight is stable 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 9 and was 8 and prior 7.8 and prior was 6.9 we blame this on the covidleg swelling dane had increased insulin dose doing great with the trulicity elevated dosecont trulicity at 3 and then see him with an a1c 6.2 is great kidneys are stable thus far but we will stop the meformin at some point [id number] Raymond Arguello [facility] Internal Medicine [address] [facility] [place] [facility] [place] [address] 03/11/2023 11:37:36 03/11/2023 13:31:35 Type 2 diabetes mellitus 55495308 E11.65 a1c is now down to 6.4 and his 6.3!!!! 9 and was 8 and prior 7.8 and prior was 6.9 we blame this on the covidleg swelling gonehe had increased insulin dose doing great with the trulicity elevated dosecont trulicity at 3 and then see him with an a1c 6.2 is great kidneys are stable thus far but we will stop the meformin at some point Hypertriglyceridemia 302 229869 E78.1 will get next lab [id number] Raymond Noelshyla [facility] Internal Medicine [address] [facility] [address] [place] [address] 06/06/2023 08:17:53 06/06/2023 10:57:25 Type 2 diabetes mellitus 08615986 E11.65 a1c is now at 7.3 was down to 6.4 this because of the covidleg swelling gonehe had increased insulin dose doing great with the trulicity elevated dosecont trulicity at 3trulicity no problemski dneys are stable thus far but we will stop the meformin at some point Essential hypertension 00179516 I10 doing well weight is stable Hypertriglyceridemia 302 117349 E78.1 will get next lab Retinopath y due to diabetes mellitus 9090238 E11.3293 followed by optho Neuropathy due to diabetes mellitus 491561526 E11.40 seems stable [id number] Raymond Holm Loly [facility] Internal Medicine [address] [facility] [address] [place] [address] 09/09/2023 15:03:53 09/09/2023 16:02:49 Essential hypertension 99687380 I10 doing well weight is stable Hypertriglyceridemia 302 783786 E78.1 will get next lab Type 2 arias betes mellitus 44389176 E11.9 a1c is now at 7 7.3 was down to 6.4 this because of the covidleg swelling gonehe had increased insulin dose doing great with the trulicity elevated dosecont trulicity at 3trulicity no problemski dneys are stable thus far but we will stop the meformin at some point [id number] Raymond Arguello [facility] Internal Medicine [address],[place] [address] 12/27/2023 14:21:30 12/27/2023 14:59:06 Adult health examination [id number] Z00.00 will need lab Screening for cardiovascular system disease 150939051 Z13.6 given multiple illnesses will need to keep checking Depression screening 171 434589 Z13.31 equivoc due to stress with [id number] Raymond Arguello [facility] Internal Medicine [address],[place] [address] 03/26/2024 13:51:33 03/26/2024 14:51:52 Type 2 diabetes mellitus 81777709 E11.9 a1c is now at 7 7.3 was down to 6.4 this because of the covidleg swelling gonehe had increased insulin dose doing great with the trulicity elevated dosecont trulicity at 3trulicity no problemski dneys are stable thus far but we will stop the meformin at some point Essential hypertension 33955075 I10 doing well weight is stable Neuropathy due to diabetes mellitus 041187250 E11.40 seems stable [id number] Raymond Arguello [facility] Internal Medicine [address],[place] [address] 06/13/2024 13:52:26 06/13/2024 14:44:19 Essential hypertension 03597046 I10 doing well weight is stable 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 9282924824 9102 E11.29 will need to keep an eye on this rechk in 6 mo Type 2 arias betes mellitus 86427271 E11.9 a1c is now at 7 7.3 was down to 6.4 this because of the covidleg swelling gonehe had increased insulin dose doing great with the trulicity elevated dosecont trulicity at 3trulicity no problemski dneys are stable thus far but we will stop the metformin at some point Obstructiv e sleep apnea syndrome 27950362 G47.33 hardeep e no issuewears cpap an is rested in am Health Concerns Section Related Observation LastModified by Organization Detai ls LastModified Time None Recorded Concern Status LastModified by Organization Details LastModified Time None Recorded Advance Directives Directive None Recorded Payers Encounter Date Sequence Insurance Name Policy Number Policy Ku Covered Member ID Ku Member ID Guarantor Name 06/06/2023 1 [place]: [facility] Eduar R Chyna [id number] Eduar R Chyna 06/06/2023 2 [employer] [id number] 2 Nichelle Hernandez Chyna [id number] Eduar R Chyna 09/09/2023 1 [place]: [facility] Eduar R Chyna [id number] Eduar R Chyna 09/09/2023 2 [employer] [id number] Nichelle David Chyna [id number] Eduar R Chyna 12/27/2023 1 [place]: [facility] Eduar R Chyna [id number] Eduar R Chyna 12/27/2023 2 [employer] [id number] 2 Nichelle G Chyna [id number] Eduar R Chyan 03/26/2024 1 [place]: [facility] Eduar R Chyna [id number] Eduar R Chyna 03/26/2024 2 [employer] [id number] 2 Nichelle David Chyna [id number] Eduar R Chyna 06/13/2024 1 [place]: [facility] Eduar R Chyna [id number] Eduar R Chyna 06/13/2024 2 [facility] IN[facility]MN[facility] - [employer] [id number] 2 Eduar R Chyna [id number] Eduar R Chyna Notes Date Note Type Note Provider Name and Address Organization Details Recorded Time 4 text/htm l Care Management - DiabetesReported bypatient.Self Care:seeing eye doctor yearly for dilated eye exam; checking feet regularly; normal range of home blood sugars (in the low 100s); no side effects from medications Associated Symptoms:symptoms are usually well controlled; no fatigue; no dizziness; no excessive sweating; no headaches; no confusion; no increased thirst; no increased appetite; no increased urination; no blurred vision; no numbness of feet; no calluses on feet patient is evaluated via tele/video assessment per patient consentduring current [id number] is up to 7.3 (last 6.4)feels good no major prob has gotten over the covid no cough and feels much bettervision is doing good not as sharp as in the pastnot needing to where glassessleep is okappetite okbowels good Raymond Arguello DO [address] [place], [address], [facility] Internal Medicine 06/06/2023 10:30:33 4 text/htm l Care Management - DiabetesReported bypatient.Self Care:seeing eye doctor yearly for dilated eye exam; checking feet regularly; normal range of home blood sugars (in the low 100s); no side effects from medications Associated Symptoms:symptoms are usually well controlled; no fatigue; no dizziness; no excessive sweating; no headaches; no confusion; no increased thirst; no increased appetite; no increased urination; no blurred vision; no numbness of feet; no calluses on feetCare Management - HypertensionReported bypatient.Self Care:not under emotional stress Severity:symptoms are improving; does not interfere with daily activities Associated Symptoms:no dizziness; no lightheadedness; no chest pain; no shortness of breath; no palpitations; no edema; no calf muscle cramps; no blurred vision; no confusion; no headaches; no fatigue here for rechk and is doing ok overall Raymond Arguello DO [address] [place], [address], [facility] Internal Medicine 09/09/2023 15:26:56 4 text/htm l Medicare Annual Wellness VisitReported bypatient.Diet and Nutrition:healthy diet Fracture Risk:no history of fractures; no recent explained fracture; no sudden unexplained fractures; no previous musculoskeletal injuries Physical Activity:exercises on a regular basis; recent increase in physical activity; good physical condition Depression Risk:never feels sad, empty, or tearful; no loss of interest in activities; no significant changes in weight; no sleep disturbances or insomnia; no agitation; no loss of energy; no feelings of worthlessness or guilt; no thoughts of suicide; no history of depression; no history of mood disorders Orientation:no disorientation to time; no disorientation to date; no disorientation to place Concentration and Memory:no decreased concentrating ability; no memory lapses or loss; does not forget words Speech/Motor difficulties:no speech difficulties; no difficulty expressing formulated concepts; no difficulty with fine manipulative tasks; no difficulty writing/copying; no slowed reaction time; does not knock things over when trying to pick them up Hearing:no loss of hearing Vision:no vision problems Activities of Daily Living:able to bathe with limited or no assistance; able to contol urination and bowels; able to dress with limited or no assistance; able to feed self with limited or no assistance; able to get out of chair or bed with limited or no assistance; able to groom with limited or no assistance; able to toilet with limited or no assistance Instrumental Activities of Daily Living:able to do house work with limited or no assistance; able to grocery shop with limited or no assistance; able to manage medications with limited or no assistance; able to manage money with limited or no assistance; able to prepare meals with limited or no assistance; able to use the phone with limited or no assistance Falls Risk Assessment:no frequent falls while walking; no fall in the past year; no fall since last visit; no dizziness/vertigo Home Safety:no unsafe jarrell hazzards; no unsafe stairs; no unsafe gas appliances; working smoke/CO detectors; wears protective head gear for biking/high velocity; use of seatbelts; practicing 'safer sex'; no vision or hearing loss while driving; no fire arms; has hand bars in the bathroom/shower; good lighting in the homeNotes:reviewed lab in detail very good and a1c is 6.9 here for wellness eval doing ok except for stress of 's illnesshe is primary caregiver Raymond Arguello DO [address] [place], [address], [facility] 12/27/2023 14:44:58 4 text/htm l Care Management - DiabetesReported bypatient.Self Care:seeing eye doctor yearly for dilated eye exam; checking feet regularly; normal range of home blood sugars (in the low 100s); no side effects from medications Associated Symptoms:symptoms are usually well controlled; no fatigue; no dizziness; no excessive sweating; no headaches; no confusion; no increased thirst; no increased appetite; no increased urination; no blurred vision; no numbness of feet; no calluses on feetCare Management - HypertensionReported bypatient.Self Care:not under emotional stress Severity:symptoms are improving; does not interfere with daily activities Associated Symptoms:no dizziness; no lightheadedness; no chest pain; no shortness of breath; no palpitations; no edema; no calf muscle cramps; no blurred vision; no confusion; no headaches; no fatigue here for rechk and is doing ok [id number] is 7.2 was 6.9is under stress with convalescencenow she is back in rehab which has helped his stress Raymond Arguello DO [address] [place] [address], [address], [facility] Internal Medicine 03/26/2024 14:40:26 5 text/htm l Care Management - DiabetesReported bypatient.Self Care:seeing eye doctor yearly for dilated eye exam; checking feet regularly; normal range of home blood sugars (in the low 100s); no side effects from medications Associated Symptoms:symptoms are usually well controlled; no fatigue; no dizziness; no excessive sweating; no headaches; no confusion; no increased thirst; no increased appetite; no increased urination; no blurred vision; no numbness of feet; no calluses on feetCare Management - HypertensionReported bypatient.Self Care:not under emotional stress Severity:symptoms are improving; does not interfere with daily activities Associated Symptoms:no dizziness; no lightheadedness; no chest pain; no shortness of breath; no palpitations; no edema; no calf muscle cramps; no blurred vision; no confusion; no headaches; no fatigue here for rechk and doing okno major issues except for the stress of his in the hospitaldenies cp no sob Raymond Arguello DO [address] [place] [address], [id number], [facility] Internal Medicine 06/13/2024 14:34:24
[2024-09-14 14:13] LABS: Alanine Aminotransferase 20 U/L (0-40); Albumin Level 3.8 g/dL (3.5-5.0); Alkaline Phosphatase 90 U/L (39-117); Anion Gap 13 (12-20); Aspartate Amino Transferase 23 U/L (5-37); Blood Urea Nitrogen 41 mg/dL (9-16); Calcium 8.9 mg/dL (8.4-10.2); Carbon Dioxide 22 mmol/L (22-29); Chloride 104 mmol/L (96-108); Estimated Glomerular Filt Rate 38; Glucose Random 242 mg/dL (60-115); Potassium 4.1 mmol/L (3.3-5.1); Sodium 135 mmol/L (135-145); Total Protein 6.8 g/dL (6.5-8.0)
[2024-09-14 14:33] LABS: Estimated Average Glucose 148 mg/dL; Hemoglobin A1C 179.9884 umol/L; Hemoglobin A1c % 6.8 % (<6.0); Total Hemoglobin (HGBA1C) 3552.4205 umol/L
== END 2024-09-14 10:08 | disposition home or self-care (01) ==
LOC: HO.MANLDS 10:07
PROVIDERS: Visit Provider Internal Medicine
DX: E11.9 Type 2 diabetes mellitus without complications (principal)
CPT/HCPCS: 36415; 80053; 83036

== ENCOUNTER 2024-12-14 09:15 | Outpatient (REF) | payer MEDICARE, OTHER, SELFPAY ==
[2024-12-14 13:38] LABS: Hemoglobin A1C 201.9806 umol/L; Total Hemoglobin (HGBA1C) 3592.7103 umol/L
== END 2024-12-14 09:16 | disposition home or self-care (01) ==
LOC: HO.MANLDS 09:15
PROVIDERS: Visit Provider Internal Medicine
DX: E11.9 Type 2 diabetes mellitus without complications (principal)
CPT/HCPCS: 36415; 83036

== ENCOUNTER 2025-03-06 14:12 | Outpatient (REF) | payer MEDICARE, OTHER, SELFPAY ==
--- OUTSIDE RECORDS SUMMARY | 2025-03-06 18:18 | XMS_ITS | Clinical Summary ---
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 Active insulin pen needles, disposable, (BD ULTRA-FINE MINI PEN NEEDLE) 31 gauge x 3/16 Ndle BD Ultra-Fine Mini Pen Needle 31 gauge x 3/16 Active glipiZIDE (GLUCOTROL) 5 MG 24 hr tablet 1 tablet 1 Active atorvastatin (LIPITOR) 40 MG tablet Take 40 mg by mouth nightly at bedtime. Active finasteride (PROSCAR) 5 mg tablet finasteride 5 mg tablet Active insulin glargine (BASAGLAR KWIKPEN U-100 INSULIN) 100 unit/mL (3 mL) InPn injection pen Inject 16 Units under the skin. Active lisinopril (PRINIVIL,ZESTRI L) 40 MG tablet lisinopril 40 mg tablet Active metFORMIN (GLUCOPHAGE) 1000 MG tablet 500 mg. Activ e simvastatin (ZOCOR) 40 MG tablet TAKE 1 TABLET BY MOUTH ONCE DAILY Active JANUVIA 100 mg tablet 9 Active insulin pen needles, disposable, (BD ULTRA-FINE MINI PEN NEEDLE) 31 gauge x 3/16 Ndle BD Ultra-Fine Mini Pen Needle 31 gauge x 3/16 USE ONCE DAILY Active blood sugar diagnostic (FREESTYLE LITE) Strp strips FreeStyle Lite Strips test once a day E11.65 Active diclofenac sodium (VOLTAREN) 1 % Gel Apply 2 g topically 4 (four) times a day as needed (right calf pain). 100 g 0 Active furosemide (LASIX) 40 MG tablet Take 40 mg by mouth. Active MOUNJARO 2.5 mg/0.5 mL PnIj subcutaneous pen Inject 2.5 mg under the skin once a week. 5 Active Active Problems Problem Noted Date Diagnosed Date Type 2 diabetes mellitus wit hout complication, with long-term current use of insulin 10/10/2019 Abnormality of breathing 03/27/2019 Obesity 11/28/2017 Essential hypertension 09/23/2017 Hypertriglyceridemia 09/23/2017 Low back pain 09/23/2017 Obstructive sleep apnea syndrome 09/23/2017 Prostatitis 09/23/2017 Recurrent hematuria 09/23/2017 Type 2 diabetes mellitus 09/23/2017 Immunizations Immunization Administration Dates Next Due Influenza High-Dose Quadriva lent Preservative Free IM 05/13/2022 Influenza High-Dose Trivalen t Preservative Free IM 02/19/2019,02/16/2018,02/15/2016,01/31 Influenza Quadrivalent Adjuv anted Preservative Free IM 02/17/2021 Influenza Quadrivalent w/ Pr eservative IM 04/05/2020,02/19/2019 Influenza Trivalent Adjuvant ed Preservative free IM 01/12/2017 Pneumococcal conjugate PCV13 01/31/2015 Pneumococcal polysaccharide PPSV23 02/15/2016 Tdap 02/16/2018 Zoster recombinant 11/16/2020 Social History Tobacco Use Types Packs/Day Years Used Date Smoking Tobacco: Never Smokeless Tobacco: Never Alcohol Use Standard Drinks/Week Comments Not Currently 0 (1 standard drink = 0.6 oz pur e alcohol) Education Answer Date Recorded Are you interested in more education? [place] 09/03/2022 Are you concerned about learning? Not on file 09/03/2022 No 09/03/2022 No 09/03/2022 Digital Access Answer Date Recorded No 10/02/2022 No 10/02/2022 No 10/02/2022 Reliable internet access at home? Not on file 10/02/2022 Device with a working camera? Not on file Intimate Partner Violence Answer Date R ecorded Are you denied basic needs s uch as food, clothing, or medical care? No 12/01/2024 In the past 12 months have y ou been in a relationship with a person who hurts, threatens, or tries to control you? No 12/01/2024 Are you denied basic needs s uch as food, clothing, or medical care? No 12/01/2024 In the past 12 months have y ou been in a relationship with a person who hurts, threatens, or tries to control you? No 12/01/2024 Sex and Gender Information Value Date Recorded Sex Assigned at Male 12/01/2024 11:07 PM EDT Legal Sex Male 10:12 PM EDT Gender Identity Male 12/01/2024 11:07 PM EDT Sexual Orientation Choose not to disclose 2024 11:07 PM EDT Last Filed Vital Signs Vital Sign Reading Time Taken Comments Blood Pressure 158/81 12/02/2024 4:30 AM EDT Pulse 74 12/02/2024 4:30 AM EDT Temperature 36.7 C (98.1 F) 12/02/2024 4:30 AM EDT Respiratory Rate 14 12/02/2024 4:30 AM EDT Oxygen Saturation 100% 12/02/2024 4:30 AM EDT Inhaled Oxygen Concentration - - Weight 113.4 kg (250 lb) 12/01/2024 11:12 PM EDT Height 179.1 cm (5' 10.5 ) 12/01/2024 11:12 PM E DT Body Mass Index 35.36 12/01/2024 11:12 PM EDT Plan of Treatment Health Maintenance Due Date Last Done Comments BLOOD PRESSURE 1940 DEPRESSION SCREENING 1952 RSV VACCINE (1 - 1-dose 75+ series) 08/24/2014 DIABETIC EYE EXAM 03/27/2019 ZOSTER VACCINES (2 of 2) 01/11/2021 11/16/2020 INFLUENZA VACCINE (#1) 2024 3, 02/17/2021, 04/05/2020, Additional history exists HEMOGLOBIN A1C 12/09/2024 06/11/2024 COVID-19 VACCINE ( season) 2025 02/17/2021, 07/04/2020, 06/13/2020 CREATININE LEVEL 12/01/2025 12/01/2024 POTASSIUM LEVEL 12/01/2025 12/01/2024 Adult Td,Tdap Booster 02/17/2028 02/16/2018 PNEUMOCOCCAL VACCINES (50+ years) Completed 02/15/2016, 01/31/2015 HEPATITIS A VACCINES Aged Out No long er eligible based on patient's age to complete this topic HIB VACCINES Aged Out No longer eligi ble based on patient's age to complete this topic MENINGOCOCCAL VACCINES (ACWY) Aged Out No longer eligible based on patient's age to complete this topic MENINGOCOCCAL VACCINES (B) Aged Out N o longer eligible based on patient's age to complete this topic Medical Devices Not on file Procedures Procedure Name Priority Date/Time Associated Diagnosis Comments BASIC METABOLIC PANEL STAT 12/01/2024 11:17 PM EDT HEMOGLOBIN A1C Routine 06/11/2024 11:00 AM EST Diabetes mellitus without complication from Last 3 Months or Most Recently Relevant to Health Maintenance Results * (ABNORMAL) Basic metabolic panel (12/01/2024 11:17 PM EDT) SODIUM 137 133 - 146 mmol/L [facility] CHLORIDE 100 96 - 108 mmol/L [facility] POTASSIUM 4.8 3.3 - 5.1 mmol/L [facility] CO2 23 21 - 35 mmol/L [facility] BUN 33(H) 6 - 19 mg/dL [facility] CREATININE 1.60(H) 0.5 - 1.5 mg/dL [facility] GLUCOSE 486(H) 70 - 99 mg/dL [facility] CALCIUM 8.5 8.4 - 10.3 mg/dL [facility] EGFR 42(L) >59 mL/min/1.7 3m2 [facility] Comment:Estimated glomerular filtration rate calculated using the CKD-EPI refit equation. ANION GAP 19 10 - 20 mmol/L [facility] Blood 12/01/2024 11:1 7 PM EDT 12/01/2024 11:21 PM EDT us Guillermo Ramos DO LAB BLOOD ORDERABLES Final Re sult [address] [id number] * (ABNORMAL) Hemoglobin A1c (06/11/2024 11:00 AM EST) HEMOGLOBIN A1C 7.0(H) 4.3 - 5.8 % [facility] Blood 06/11/2024 11:0 0 AM EST 06/11/2024 11:03 AM EST us Raymond Salcido DO LAB BLOOD ORDERABLES Final Resul t Performing Organization Address [facility] Co de Phone Number [address] [phone] from Last 3 Months or Most Recently Relevant to Health Maintenance Insurance MEDICARE PART A & B [employer] [facility] SUPPLEMENT MEDICARE PART A & B [facility] MEDICARE SUPPLEMENT MEDICARE PART A & B [facility] EX[employer] MEDICARE SUPPLEMENT MEDICARE PART A & B [facility] [employer] MEDICARE SUPPLEMENT MEDICARE PART A & B [employer] MEDICARE SUPPLEMENT MEDICARE PART A & B [employer] EXTENSION MEDICARE SUPPLEMENT MEDICARE PART A & B [facility] MEDICARE SUPPLEMENT MEDICARE PART A & B [facility] [employer] MEDICARE SUPPLEMENT MEDICARE PART A & B [facility] [employer] MEDICARE SUPPLEMENT Care Teams 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 PCP - General Internal Medicine 06/11/24 Additional Source Comments The information contained in this document represents components of the legal health record. It is not the complete legal health record.[facility]
--- OUTSIDE RECORDS SUMMARY | 2025-03-06 18:19 | XMS_ITS | Data Portability ---
Author Organization [facility], Telehealth Patient Home Address [address] [place] [address] Assessment Encounter Date Assessment Date Assessment LastModified by Organization Details LastModified Time 12/27/2023 12/27/2023 Patient presente d to office [...] living. 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 Referral audiologi st referral 2024 025 [facility], [address] [place] [address], [place], [address], 01/15/2025 08:35:02 Procedures None recorded. Surgeries None recorded. Imaging None recorded. Medication Orders None recorded. Patient TargetsNo targets recorded. Patient Instructions Encounter Date Encounter Id Patient Instructions Last Modified By Organization Details Last Modified Time 12/27/2023 [id number] advance care planning: care instructions Not available 12/27/2023 14:44:54 Discussed and explained advance directives such as standard forms to the patient. Face to face discussion lasted for a duration of __5_ minutes. Not available 12/27/2023 14:44:28 06/13/2024 [id number] sleep apnea: car e instructions [email or web address] Not available 06/13/2024 14:32:34 12/18/2024 [id number] shingles: care instructions Not available 12/18/2024 14:49:46 diabetic retinopathy: care instructions Not available 12/18/2024 14:49:47 Reason for Referral It Service Technician Referral for [facility] ed conductive and sensorineural hearing loss, bilateral Referring Physician: Raymond Arguello, Internal Medicine, Encounter Date: 12/18/2024 Results Created Date Observation Date Name Description Value Unit Range Abnormal Flag Note LastModifiedBy Organization Detail LastModifiedTime 02/22/20 25 02/20/2025 heari ng aid evalu ation * No observ ation record ed. [email or web address] [facility] [address] [address], [place], [address], 02/22/2025 08:55:56 Result Notes None recorded. Problems Name Problem SNOMED Code Status Onset Date Resolution Date Notes Provider Name and Address Organization Details Recorded Time Type 2 diabetes mellitus 02482831 Active 2017 Not Available [facility] 14:19:32 Hypertrig lyceridem ia 274427537 Active 2017 Not Available [facility] 14:19:32 Obstructi ve sleep apnea syndrome 17272707 Active 2017 Not Available [facility] 14:19:32 Low back pain 180476522 Active 2017 strain Not Available [facility] 14:19:32 Essential hypertens ion 56362294 Active 2017 Not Available [facility] 14:19:32 Prostatit is 9892712 Active 2017 Not Available [facility] 14:19:32 Recurrent hematuria 285402340 Active 2017 Not Available [facility] 14:19:32 Obesity 534695431 Active 2017 Not Available [facility] 1 14:19:32 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 39372593738 102 Active 2019 Not Available [facility] 1 14:19:33 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 4330036 Active 2021 Raymond Arguello, DO [address] [place], [address], [facility] 2 15:39:22 Neuropath y due to diabetes mellitus 490854590 Active 2022 Raymond Arguello, DO [address] [place] [address], [phone], [facility] 3 11:06:27 COVID-19 755951162 Active 2023 DARRELL OLIVARES [address] [place] [address], [phone], [facility] 4 13:53:59 Herpes zoster 5311158 Active 2024 Raymond Arguello, DO [address] [place] [address], [address], [facility] 5 16:47:58 Mixed conductiv e and sensorine ural hearing loss, bilateral 743867608 Active 2024 Raymond Arguello, DO [address] [place] [address], [address], [facility] 5 14:49:19 Problem Notes None recorded. Medical Equipment None Reported. Allergies No known drug allergies Medications Name Sig Start Date Stop Date Status Note LastModified by Organization Details LastModified Time Prescript ion - Prior Authoriza tion Request 11/13 completed Cycloben zaprine Not Available Not Available Not Available furosemid e 40 mg tablet TAKE 1 TABLET BY MOUTH EVERY DAY NEEDED active Not Available Not Available No t Available atorvasta tin 40 mg tablet TAKE 1 TABLET BY MOUTH EVERY DAY 2024 active Not Available Not Available Not Avai lable valacyclo vir 1 gram tablet TAKE 1 TABLET BY MOUTH EVERY 12 HOURS FOR 7 DAYS 12/18 completed Not Available Not Available Not Available glipizide ER 10 mg tablet, extended release [...] e Mini Pen Needle 31 gauge x /16 USE EVERY DAY 2021 active Not Available Not Available Not Avai lable Boostrix Tdap 2.5 Lf unit-8 mcg-5 Lf/0.5 mL intramusc ular syringe 06/12 completed Not Available Not Available Not Available Aspir-81 Take one daily. active Not Available Not Available No t Available Januvia 100 mg tablet TAKE 1 TABLET [...] completed Not Available Not Available Not Available Yuni Loco U-300 Insulin 300 unit/mL (1.5 mL) subcutane [...] Available Not Available No t Available BD Daelina 2nd Gen Pen Needle 32 gauge x USE EVERY DAY active Not Available Not Available No t Available Fluzone High-Dose Quad 2020- (PF) 240 mcg/0.7 mL IM syringe ADM 0.7ML IM UTD 03/04 completed Not Available Not Available Not Available Trulicity 3 mg/0.5 mL subcutane ous pen injector ADMINIST ER 3 MG UNDER THE SKIN EVERY WEEK active Not Available Not Available No t Available BinaxNOW COVID-19 Ag Self Test kit [...] Not Available Not Available Not Avai lable Ultra-Fin e Pen Needle 31 gauge x 5/16 USE TO INJECT INSULIN EVERY DAY active Not Available Not Available No t Available Vitals Date Recorded Body height Body mass index (BMI) Body weight Heart rate Oxygen saturation Oxygen saturation in Arterial blood by Pulse oximetry Systolic And Diastolic Provider Name and Address Organization Details Last Updated DateTime 5 179.07 cm 36.5 kg/m2 585298. 83 g 78 /min 100 % 100 % 118/70 mm[Hg] Kan Covarrubias [facility] 5 14:04:00 Date Recorded Body height Body mass index (BMI) Body weight Heart rate Oxygen saturation Oxygen saturation in Arterial blood by Pulse oximetry Systolic And Diastolic Provider Name and Address Organization Details Last Updated DateTime 5 179.07 cm 36.5 kg/m2 751719. 83 g 77 /min 98 % 98 % 110/70 mm[Hg] Vilma Farfan [facility] 5 14:00:43 Date Recorded Body height Body mass index (BMI) Body weight Oxygen saturation Oxygen saturation in Arterial blood by Pulse oximetry Heart rate Systolic And Diastolic Provider Name and Address Organization Details Last Updated DateTime 5 179.07 cm 35.6 kg/m2 229645. 12 g 97 % 97 % 68 /min 128/72 mm[Hg] Sweetie Cxo [facility] 5 14:32:43 Date Recorded Body height Body mass index (BMI) Body weight Heart rate Oxygen saturation Oxygen saturation in Arterial blood by Pulse oximetry Systolic And Diastolic Provider Name and Address Organization Details Last Updated DateTime 4 179.07 cm 35.9 kg/m2 920815. 46 g 72 /min 98 % 98 % 118/78 mm[Hg] Kan Covarrubias [facility] 4 14:29:36 Date Recorded Body height Body mass index (BMI) Body weight Heart rate Oxygen saturation Oxygen saturation in Arterial blood by Pulse oximetry Systolic And Diastolic Provider Name and Address Organization Details Last Updated DateTime 4 179.07 cm 35.4 kg/m2 468510. 09 g 71 /min 98 % 98 % 132/80 mm[Hg] Vilma Farfan [facility] 4 14:15:48 Social History Question Answer Notes LastModified by Organizat ion Details LastModified Time Tobacco Smoking Status [facility] 12:21:42 What Was The Date Of Your Most Recent Tobacco Screening? 12/18/2024 [email or web address] Information not available 12/18/2024 Sex: Unknown Functional Status Question Answer Note LastModified by Organization D etails LastModified Time Do you or have you ever used any other forms of tobacco or nicotine? No Information not available 08/11/2022 Mental Status None recorded. Family History Nothing Reported. Medical History No medical history recorded. Immunizations Vaccine Type Date Status Note Provider Nam e and Address Organization Details Recorded Time COVID-19, mRNA, LNP-S, PF, 30 mcg/0.3 mL dose 02/18/20 21 completed DARRELL OLIVARES [address] [place] [address], [address], [facility] 02/18/2021 14:26:39 Influenza, split virus, quadrivalent, preservative 02/18/20 21 completed Raymond Arguello DO [address] [place] [address], [address], [facility] Internal [facility] 03/04/2021 09:20:10 Influenza, split virus, quadrivalent, preservative 02/17/20 18 completed Raymond Arguello DO [address] [place] [address], [address], [facility] Internal [facility] 02/17/2018 08:32:39 Tdap 02/17/20 18 completed Raymond Arguello DO [address] [place] [address], [address], [facility] 02/17/2018 08:32:51 Pneumococcal conjugate PCV 13 02/01/20 15 [facility] 03/13/2018 11:33:20 Influenza, split virus, quadrivalent, preservative 02/20/20 19 [facility] 02/20/2019 08:03:47 Influenza, split virus, quadrivalent, preservative 04/05/20 20 [facility] 04/07/2020 08:09:39 COVID-19, mRNA, LNP-S, PF, 30 mcg/0.3 mL dose 06/13/19 21 [facility] 07/16/2020 10:35:28 COVID-19, mRNA, LNP-S, PF, 30 mcg/0.3 mL dose 07/04/19 21 completed Shima luevano [facility] 07/16/2020 09:13:42 pneumococcal polysaccharide PPV23 02/15/20 16 completed Shima luevano [facility] 07/16/2020 10:35:44 Past Encounters Encounter ID Performer Location Encounter Start Date Encounter Closed Date Diagnosis/Indication Diagnosis SNOMED-CT Code Diagnosis ICD10 Code Diagnosis IMO Codes Diagnosis Note [id number] Raymond Arguello [facility] [address] [facility] [address] [address] 09/23/2017 11:58:47 09/23/2017 16:36:41 Type 2 diabetes mellitus 72581595 E11.65 increase to 40units levemir Essential hypertension 78052884 I10 doing well weight is down 10 lb [id number] Raymond Arguello [facility] Internal [facility] [address] [facility] [address] [address] 11/28/2017 11:06:59 11/28/2017 11:59:06 Type 2 diabetes mellitus 88290768 E11.65 will provide with toujeo pen samples and will rechk in 3 mo Essential hypertension 93352735 I10 doing well weight is stable [id number] Raymond Arguello [facility] Internal [facility] [address] [facility] [address] [address] 03/13/2018 11:04:08 03/13/2018 12:18:52 Adult health examination 598230291 Z00.00 will need lab Screening for cardiovascular system disease 972090552 Z13.6 given multiple illnesses willneed to keep checking Screening for malignant neoplasm of colon 092792489 Z12.11 not due Type 2 arias betes mellitus 57484909 E11.65 levemor ios not working poor response will provide with toujeo pen samples and will rechk in 3 mo and will try use toujeo exclusivel y now as this clearly worked well Essential hypertension 97615077 I10 doing well weight is stable [id number] Raymond Arguello [facility] [address] [facility] [address],[place] [address] 06/12/2018 10:24:17 06/12/2018 14:09:51 Type 2 diabetes mellitus 26547029 E11.65 basaglar working well a1c is dowwn to 8.0 will continue current doses as his glucose cont to drop Essential hypertension 09418001 I10 doing well weight is stable Pre-surger y evaluation 061250335 Z01.818 according to the latest risk evaluation format this patient is at low risk for cataract surgery and is cleared accordingl y. pt understand s to take 1/2 dose of his Basaglar on night before surgery. Raymond Arguello [facility] [address] [facility] [address] [address] 09/20/2018 09:37:55 09/20/2018 10:58:49 Type 2 diabetes mellitus 19635469 E11.65 basaglar working well a1c is dowwn to 8.1 will continue current doses as his glucose cont to drop Essential hypertension 52690258 I10 doing well weight is stable Hypertriglyceridemia 302 868163 E78.1 will get next lab [id number] Raymond Arguello [facility] [address] [facility] [address] [address] 01/17/2019 13:40:07 01/17/2019 14:55:52 Type 2 diabetes mellitus 58271469 E11.65 basaglar working fair a1c is staying at 8.2 will continue current doses as his glucose cont to drop Essential hypertension 69699500 I10 doing well weight is stable [id number] Raymond Arguello [facility] [address] [facility] [address] [address] 04/25/2019 10:05:00 04/25/2019 10:55:27 Type 2 diabetes mellitus 04177657 E11.65 basaglar working [facility] will add januvia and stop the glipizide due to the wgt gain since on it a1c is up to at 8.9 as this shows he is not compliant will continue basaglar but at 50 units Essential hypertension 61311174 I10 doing well weight is stable [id number] Raymond Arguello [facility] [address] 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 2815734452 9102 E11.29 will need to keep an eye on this rechk in 6 mo [id number] Raymond Arguello DO [facility] [address] [employer],[place] [address] 10/19/2019 11:57:50 10/19/2019 13:46:12 Strain of calf muscle 000742808 S86.111A will try muscle relaxer and switching from voltaren gel to ibuprofen/ aleve for pain and inflammati on will continue to ice and heat area will continue to elevate the leg [id number] Raymond Arguello [facility] [address] [employer] [employer],[place] [address] 11/14/2019 09:22:31 11/14/2019 09:58:06 Microalbuminuria due to type 2 diabetes mellitus 9556218155 9102 E11.29 will need to keep an eye on this rechk in 6 mo Type 2 arias betes mellitus 81664385 E11.65 bryan working so far he is more active and his a1c is stable at 7.7 have added januvia and stop the glipizide due to the wgt gain since on it a1c was up to at 8.9 last dec and is now 7.7 and this is excellent will continue tonyaaglzbigniew at 50 units januvia working great Essential hypertension 90803082 I10 doing well weight is stable Obesity 253928213 E66.9 still gaining not following diet but at l;east he is active [id number] Raymond Arguello [facility] [address] 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 2682047793 9102 E11.29 will need to keep an eye on this rechk in 6 mo [id number] Raymond Arguello [facility] [address] [employer],[place] [employer] [place] [address] 07/16/2020 09:10:17 07/16/2020 10:25:18 Type 2 diabetes mellitus 82033102 E11.65 basaglar working so far he is more active and his a1c is stable at 7.7 januvia is working and doing gooed a1c is down to 7 was backup to 8.4 was 7.7 and 8.9 last decwill continue basaglar at 50 units we will cont the metform but only once daily due to kidneys januvia working great Essential hypertension 72608830 I10 doing well weight is stable Hyperkalemia 85956446 E8 7.5 stop bid metformin we will stop spironolac tone eye on lisinopril but will add furosemide for when legs swell rechk in week Edema of l ower extremity 156700349 R60.0 [id number] Raymond Arguello [facility] [address] [employer] [address] 10/29/2020 08:54:22 10/29/2020 09:27:27 Type 2 diabetes mellitus 74436944 E11.65 basaglar working so far he is more active and his a1c is stable at 7.7 januvia is working and doing good a1c is down to 7 was back up to 8.4 was 7.7 and 8.9 last dec will continue basaglar at 50 units we will cont the metform but only once daily due to kidneys januvia working great Hypertriglyceridemia 302 190486 E78.1 will get next lab Essential hypertension 77012850 I10 doing well weight is stable [id number] Raymond Arguello [facility] [address] [employer] [address] 03/04/2021 09:13:23 03/04/2021 12:34:19 Essential hypertension 95682000 I10 doing well weight is stable Type 2 arias betes mellitus 96134139 E11.65 a1c is elevated at 8.6 and this despite eating better and noted leg swelling gone and increased insulin dose we will add trulicity .75 and then have him increase to 1.5 and then see him with an a1cwe will cont the metform but only once daily due to kidneys Hypertriglyceridemia 302 553497 E78.1 will get next lab [id number] Raymond Arguello [facility] [address] [employer] [employer],[place] [address] 05/04/2021 07:11:21 05/04/2021 11:30:31 Type 2 diabetes mellitus 09451062 E11.65 a1c is elevated at 8.2 but better than 8.6 and this despite eating better and noted leg swelling gone and increased insulin dosecont trulicity at 1.5 and then see him with an a1c in 2 monthswe will cont the metform but only once daily due to kidneyssam ples of trulicity 1.5 given Essential hypertension 79335124 I10 doing well weight is stable [id number] Raymond Arguello [facility] [address] [employer], [place] [address] 07/07/2021 15:22:22 07/08/2021 08:35:20 Type 2 diabetes mellitus 79064321 E11.65 a1c is elevated at 8.2 but [...] ples of trulicity 1.5 given Essential hypertension 27239347 I10 doing well weight is stable Obstructiv e sleep apnea syndrome 35528396 G47.33 hardeep e no issue [id number] Raymond Arguello [facility] [address] [employer], it[address] [facility] [place] [address] 08/12/2021 14:23:33 08/14/2021 09:55:24 Pre-surgery evaluation 059115061 Z01.818 according to the latest risk evaluation format this patient is at low risk for cataract surgery and is cleared accordingl y. pt understand s to take 1/2 dose of his Basaglar on night before surgery. Active or passive immunization 110125315 Z23 advised of shingles vaccine will consider Type 2 arias betes mellitus 68792052 E11.65 a1c is 7.1 and is betterhe is eating better and noted leg swelling gonehe had increased insulin dose and he is doing great with the trulicityc ont trulicity at 1.5 and then see him with an a1c in 2 monthswe will cont the metform but only once daily due to kidneys and will follow [id number] Raymond Arguello [facility] [address] [employer],[place] [address] 10/21/2021 08:00:05 10/21/2021 15:36:40 Type 2 diabetes mellitus 43396091 E11.65 a1c is 6.8 was 7.1 and [...] we will stop the meformin Essential hypertension 11179789 I10 doing well weight is stable [id number] Raymond Arguello [facility] [address] [employer], [address] [facility] [place] [address] 02/03/2022 14:05:54 02/03/2022 15:59:10 Type 2 diabetes mellitus 25083229 E11.65 a1c is 6.9 and prior 6.8 [...] we will stop the meformin Essential hypertension 63096061 I10 doing well weight is stable Obesity 023934347 E66.9 still gaining not following diet but at l;east he is active [id number] Raymond Arguello, [facility] [address] [employer],[place] [address] 04/26/2022 14:41:09 04/26/2022 16:27:36 Type 2 diabetes mellitus 16165007 E11.65 a1c is 7.8 and prior was [...] the meformin at some point Hypertriglyceridemia 302 407778 E78.1 will get next lab Essential hypertension 63292549 I10 doing well weight is stable 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 1406078742 9102 E11.29 will need to keep an eye on this rechk in 6 mo [id number] Raymond Arguello, [facility] [address] [employer] [address] [employer],[place] [address] 08/11/2022 10:04:51 08/11/2022 11:16:38 Type 2 diabetes mellitus 72696658 E11.65 a1c is now up to 9 [...] the meformin at some point Essential hypertension 14975769 I10 doing well weight is stable Retinopath y due to diabetes mellitus 6776193 E11.3293 followed by optho 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 [address] 12/10/2022 07:51:32 12/10/2022 14:40:22 Neuropathy due to diabetes mellitus 835524022 E11.40 Essential hypertension 04166081 I10 doing well weight is stable Hypertriglyceridemia 302 913956 E78.1 will get next lab Type 2 arias betes mellitus 36171445 E11.65 a1c is now down to 6.3!!!! 9 and was 8 and prior 7.8 and prior was 6.9 we blame this on the covidleg swelling gonentaaly had increased insulin dose doing great with the trulicity elevated dosecont trulicity at 3 and then see him with an a1c 6.2 is great kidneys are stable thus far but we will stop the meformin at some point [id number] Raymond Arguello [facility] [address] [employer], it[address] [facility] [place] [address] 03/11/2023 11:37:36 03/11/2023 13:31:35 Type 2 diabetes mellitus 50880269 E11.65 a1c is now down to 6.4 [...] the meformin at some point Hypertriglyceridemia 302 290782 E78.1 will get next lab [id number] Raymond Arguello [facility] [address] [employer] [employer],[place] [address] 06/06/2023 08:17:53 06/06/2023 10:57:25 Type 2 diabetes mellitus 59760340 E11.65 a1c is now at 7.3 was down to 6.4 this because of the covidleg swelling gonehe had increased insulin dose doing great with the trulicity elevated dosecont trulicity at 3trulicity no problemski dneys are stable thus far but we will stop the meformin at some point Essential hypertension [id number] I10 doing well weight is stable Hypertriglyceridemia 302 055718 E78.1 will get next lab Retinopath y due to diabetes mellitus 1988109 E11.3293 followed by optho Neuropathy due to diabetes mellitus [id number] E11.40 seems stable [id number] Raymond Arguello [facility] [address] [address] 09/09/2023 15:03:53 09/09/2023 16:02:49 Essential hypertension [id number] I10 doing well weight is stable Hypertriglyceridemia 302 063225 E78.1 will get next lab Type 2 arias betes mellitus 75165581 E11.9 a1c is now at 7 7.3 was down to 6.4 this because of the covidleg swelling gonehe had increased insulin dose doing great with the trulicity elevated dosecont trulicity at 3trulicity no problemski dneys are stable thus far but we will stop the meformin at some point [id number] Raymond Arguello [facility] [address], [place] [facility] [place] [address] 12/27/2023 14:21:30 12/27/2023 14:59:06 Adult health examination [id number] Z00.00 will need lab Screening for cardiovascular system disease [id number] Z13.6 given multiple illnesses will need to keep checking Depression screening 171 372081 Z13.31 equivoc due to stress with [id number] Raymond Arguello [facility] [address], [place] [address] 03/26/2024 13:51:33 03/26/2024 14:51:52 Type 2 diabetes mellitus 01272344 E11.9 a1c is now at 7 7.3 was down to 6.4 this because of the covidleg swelling gonehe had increased insulin dose doing great with the trulicity elevated dosecont trulicity at 3trulicity no problemski dneys are stable thus far but we will stop the meformin at some point Essential hypertension 92940192 I10 doing well weight is stable Neuropathy due to diabetes mellitus 272860703 E11.40 seems stable [id number] Raymond Arguello [facility] [address] [address] 06/13/2024 13:52:26 06/13/2024 14:44:19 Essential hypertension 04009728 I10 doing well weight is stable 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 [id number] 9102 E11.29 will need to keep an eye on this rechk in 6 mo Type 2 arias betes mellitus 92857800 E11.9 a1c is now at 7 7.3 was down to 6.4 this because of the covidleg swelling gonehe had increased insulin dose doing great with the trulicity elevated dosecont trulicity at 3trulicity no problemski dneys are stable thus far but we will stop the metformin at some point Obstructiv e sleep apnea syndrome 89989514 G47.33 hardeep e no issuewears cpap an is rested in am [id number] Raymond Arguello [facility] [address] [address] 09/18/2024 13:45:24 09/18/2024 14:28:31 Essential hypertension 44068698 I10 doing well weight is stable Depression screening 171 726073 Z13.31 equivoc due to stress with Hypertriglyceridemia 302 156315 E78.1 will get next lab Type 2 arias betes mellitus 33960029 E11.9 a1c is now at 7 7.3 was down to 6.4 this because of the covidleg swelling gonehe had increased insulin dose doing great with the trulicity elevated dosecont trulicity at 3trulicity no problemski dneys are stable thus far but we will stop the metformin at some point [id number] Raymond Arguello [facility] [address] [facility] [address] [facility] [address] 12/18/2024 14:23:16 12/18/2024 14:53:23 Depression screening 399148916 Z13.31 equivoc due to stress with Essential hypertension 72234195 I10 doing well weight is stable Type 2 arias betes mellitus 14122047 E11.9 a1c is now at 7.3 was down to 6.4 this because of the covidleg swelling gonehe had increased insulin dose doing great with the trulicity elevated dosecont trulicity at 3trulicity no problemski dneys are stable thus far but we will stop the metformin at some point Herpes zoster 2797221 B0 2.9 [id number] left torso and no pain or discomfort is mild and is now itchy and helaing 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 and is stable Mixed cond uctive and sensorineural hearing loss, 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 [id number] Health Concerns Section Related Observation LastModified by Organization Detai ls LastModified Time None Recorded Concern Status LastModified by Organization Details LastModified Time None Recorded Advance Directives Directive None Recorded Payers Insurance Date Sequence Insurance Name Policy Number Policy Ku Covered Member ID Ku Member ID Guarantor Name 02/25/2025 1 MEDICARE B-MD: [facility] [employer] Eduar R Chyna [id number] Eduar R Chyna 01/25/2025 2 UNICARE [id number] Nichelle G Chyna [id number] Eduar R Chyna 01/25/2025 2 [facility] INDEMNITY PLAN (INDEMNITY) [id number] Eduar R Chyna [id number] Eduar R Chyna Notes Date Note Type Note Provider Name and Address Organization Details Recorded Time 12/27/19 24 text/htm l Medicare Annual Wellness VisitReported by PatientSocial/Behavioral HistoryFor diet and nutrition, patient reportshealthy diet. For fracture risk, patient reportsno history of fractures,no recent explained fracture,no sudden unexplained fractures, andno previous musculoskeletal injuries. For physical activity, patient reportsexercises on a regular basis,recent increase in physical activity, andgood physical condition.Mental Status:For depression risk, patient reportsnever feels sad, empty, or tearful,no loss of interest in activities,no significant changes in weight,no sleep disturbances or insomnia,no agitation,no loss of energy,no feelings of worthlessness or guilt,no thoughts of suicide,no history of depression, andno history of mood disorders. For orientation, patient reportsno disorientation to time,no disorientation to date, andno disorientation to place. For concentration and memory, patient reportsno decreased concentrating ability,no memory lapses or loss, anddoes not forget words. For speech/motor difficulties, patient reportsno speech difficulties,no difficulty expressing formulated concepts,no difficulty with fine manipulative tasks,no difficulty writing/copying,no slowed reaction time, anddoes not knock things over when trying to pick them up.Functional AbilityFor hearing, patient reportsno loss of hearing. For vision, patient reportsno vision problems. For activities of daily living, patient reportsable to bathe with limited or no assistance,able to contol urination and bowels,able to dress with limited or no assistance,able to feed self with limited or no assistance,able to get out of chair or bed with limited or no assistance,able to groom with limited or no assistance, andable to toilet with limited or no assistance. For instrumental activities of daily living, patient reportsable to do house work with limited or no assistance,able to grocery shop with limited or no assistance,able to manage medications with limited or no assistance,able to manage money with limited or no assistance,able to prepare meals with limited or no assistance, andable to use the phone with limited or no assistance. For falls risk assessment, patient reportsno frequent falls while walking,no fall in the past year,no fall since last visit, andno dizziness/vertigo. For home safety, patient reportsno unsafe jarrell hazzards,no unsafe stairs,no unsafe gas appliances,working smoke/co detectors,wears protective head gear for biking/high velocity,use of seatbelts,practicing 'safer sex',no vision or hearing loss while driving,no fire arms,has hand bars in the bathroom/shower, andgood lighting in the home.reviewed lab in detail very good and a1c is 6.9ROS as noted in the HPI here for wellness eval doing ok except for stress of 's illnesshe is primary caregiver Raymond Arguello DO [address], [place], [address], [facility] 12/27/2023 14:44:58 03/26/20 24 text/htm l Care Management - DiabetesReported by PatientHPIFor self care, patient reportsseeing eye doctor yearly for dilated eye exam,checking feet regularly,normal range of home blood sugars (in the low 100s), andno side effects from medications. For associated symptoms, patient reportssymptoms are usually well controlled,no fatigue,no dizziness,no excessive sweating,no headaches,no confusion,no increased thirst,no increased appetite,no increased urination,no blurred vision,no numbness of feet, andno calluses on feet. Care Management - HypertensionReported by [facility]BR[facility] self care, patient reportsnot under emotional stress. For severity, patient reportssymptoms are improvinganddoes not interfere with daily activities. For associated symptoms, patient reportsno dizziness,no lightheadedness,no chest pain,no shortness of breath,no palpitations,no edema,no calf muscle cramps,no blurred vision,no confusion,no headaches, andno fatigue.ROS as noted in the HPI here for rechk and is doing ok [id number] is 7.2 was 6.9is under stress with convalescencenow she is back in rehab which has helped his stress Raymond Arguello, DO [address], [place], [address], [facility] 03/26/2024 14:40:26 06/13/19 25 text/htm l Care Management - HypertensionReported by [facility], patient reportsnot under emotional stress. For severity, patient reportssymptoms are improvinganddoes not interfere with daily activities. For associated symptoms, patient reportsno dizziness,no lightheadedness,no chest pain,no shortness of breath,no palpitations,no edema,no calf muscle cramps,no blurred vision,no confusion,no headaches, andno fatigue. Care Management - DiabetesRep[facility] by [facility] self [facility], patient reportsseeing eye doctor yearly for dilated eye exam,checking feet regularly,normal range of home blood sugars (in the low 100s), andno side effects from medications. For associated symptoms, patient reportssymptoms are usually well controlled,no fatigue,no dizziness,no excessive sweating,no headaches,no confusion,no increased thirst,no increased appetite,no increased urination,no blurred vision,no numbness of feet, andno calluses on feet.ROS as noted in the HPI here for rechk and doing okno major issues except for the stress of his in the hospitaldenies cp no sob Raymond GerberRhina Loly, DO [address], [place], [address], [facility] 06/13/2024 14:34:24 09/19/19 25 text/htm l Care Management - DiabetesReported by PatientHPIFor self care, patient reportsseeing eye doctor yearly for dilated eye exam,checking feet regularly,normal range of home blood sugars (in the low 100s), andno side effects from medications. For associated symptoms, patient reportssymptoms are usually well controlled,no fatigue,no dizziness,no excessive sweating,no headaches,no confusion,no increased thirst,no increased appetite,no increased urination,no blurred vision,no numbness of feet, andno calluses on feet. Annual WellnessReported by PatientSocial/Behavioral HistoryFor diet and nutrition, patient reportshealthy diet. For fracture risk, patient reportsno history of fractures,no recent explained fracture,no sudden unexplained fractures, andno previous musculoskeletal injuries. For physical activity, patient reportsexercises on a regular basis,recent increase in physical activity, andgood physical condition. For additional lifestyle factors, patient reportsno tobacco use,no alcohol intake, andstopped drinking alcohol.Mental Status:For depression risk, patient reportsnever feels sad, empty, or tearful,no loss of interest in activities,no significant changes in weight,no sleep disturbances or insomnia,no agitation,no loss of energy,no feelings of worthlessness or guilt,no thoughts of suicide,no history of depression, andno history of mood disorders.Functional AbilityFor hearing, patient reportsno loss of hearing. For vision, patient reportsno vision problems. Care Management - HypertensionReported by PatientHPIFor self care, patient reportsnot under emotional stress. For severity, patient reportssymptoms are improvinganddoes not interfere with daily activities. For associated symptoms, patient reportsno dizziness,no lightheadedness,no chest pain,no shortness of breath,no palpitations,no edema,no calf muscle cramps,no blurred vision,no confusion,no headaches, andno fatigue. Care Management - HyperlipidemiaReported by PatientROS as noted in the HPI doing better still stresed with [id number] is now down to 6.8 from 7's Raymond Arguello DO [address] [place], [address], [facility] 09/18/2024 14:20:10 12/19/19 25 text/htm l Care Management - HypertensionReported by PatientHPIFor self care, patient reportsnot under emotional stress. For severity, patient reportssymptoms are improvinganddoes not interfere with daily activities. For associated symptoms, patient reportsno dizziness,no lightheadedness,no chest pain,no shortness of breath,no palpitations,no edema,no calf muscle cramps,no blurred vision,no confusion,no headaches, andno fatigue. Care Management - DiabetesReported by PatientIFor self care, patient reportsseeing eye doctor yearly for dilated eye exam,checking feet regularly,normal range of home blood sugars (in the low 100s), andno side effects from medications. For associated symptoms, patient reportssymptoms are usually well controlled,no fatigue,no dizziness,no excessive sweating,no headaches,no confusion,no increased thirst,no increased appetite,no increased urination,no blurred vision,no numbness of feet, andno calluses on feet.a1c is 7.3 was 7.0ROS as noted in the HPI here since his onset of shingles around left torso Raymond Arguello DO [address] [place], [address], [facility] 12/18/2024 14:51:56
[2025-03-06 18:24] LABS: Hemoglobin A1C 227.6191 umol/L; Total Hemoglobin (HGBA1C) 3583.5555 umol/L
== END 2025-03-06 14:13 | disposition home or self-care (01) ==
LOC: HO.MANLDS 14:12
PROVIDERS: Visit Provider Internal Medicine
DX: E11.9 Type 2 diabetes mellitus without complications (principal)
CPT/HCPCS: 36415; 83036